=== PATIENT | female | born 1965 | race Hispanic/Latino ===

== ENCOUNTER 2019-10-08 22:00 | Inpatient (IN) | payer MEDICAID ==
[2019-10-08] MEDS ORDERED: SODIUM CHLORIDE 0.9% 1000 ML 1,000 ML IV ONE ×2 (22:22→23:19)
[2019-10-08] MEDS ORDERED: METOCLOPRAMIDE 10 MG/2 ML INJ IV ONE (22:46)
--- NOTE | 2019-10-08 22:48 | Emergency Department Report ---
ED General Adult HPI - General Chief complaint: Altered Mental Status Stated complaint: AMS Time Seen by Provider: 10/08/19 22:15 Source: EMS Mode of arrival: Stretcher Limitations: No Limitations - History of Present Illness Initial comments: She has a 53-year-old female past medical history of stroke who presents with nausea and vomiting answering going on for last couple hours. Patient's pain is moderate she says is old body. Patient has been having repeated bouts of nausea and vomiting. History is limited due to patient's condition. - Related Data Allergies Allergy/AdvReac Type Severity Reaction Status Date / Time No Known Allergies Allergy Unverified 10/08/19 23:04 ED Review of Systems ROS: Stated complaint: AMS Other details as noted in HPI ED Physical Exam - General Limitations: No Limitations General appearance: alert, in no apparent distress - Head Head exam: Present: atraumatic, normocephalic - Eye Eye exam: Present: normal appearance - ENT ENT exam: Present: mucous membranes moist - Neck Neck exam: Present: normal inspection - Respiratory Respiratory exam: Present: normal lung sounds bilaterally. Absent: respiratory distress - Cardiovascular Cardiovascular Exam: Present: regular rate, normal rhythm. Absent: systolic murmur, diastolic murmur, rubs, gallop - GI/Abdominal GI/Abdominal exam: Present: soft, normal bowel sounds - Extremities Exam Extremities exam: Present: normal inspection - Back Exam Back exam: Present: normal inspection - Neurological Exam Neurological exam: Present: alert, other (left sided hemiplegia and confusion.) - Psychiatric Psychiatric exam: Present: normal affect, normal mood - Skin Skin exam: Present: warm, dry, intact, normal color. Absent: rash ED Course Vital Signs 10/08/19 10/08/19 10/08/19 22:18 22:30 23:00 Pulse Rate 86 94 H 92 H Respiratory 15 11 L 17 Rate Blood Pressure 131/85 91/49 O2 Sat by Pulse 97 94 92 Oximetry 10/09/19 10/09/19 10/09/19 00:00 00:30 01:00 Pulse Rate 86 85 84 Respiratory 18 15 11 L Rate Blood Pressure 142/78 97/50 120/65 O2 Sat by Pulse 98 96 97 Oximetry 10/09/19 01:12 Pulse Rate Respiratory 18 Rate Blood Pressure O2 Sat by Pulse Oximetry ED Medical Decision Making - Lab Data Result diagrams: 10/08/19 22:50 10/08/19 22:50 Lab Results 10/08/19 10/08/19 10/08/19 Range/Units 22:50 22:50 22:50 WBC 13.6 H (4.5-11.0) K/mm3 RBC 7.12 H (3.65-5.03) M/mm3 Hgb 20.7 H* (10.1-14.3) gm/dl Hct 63.4 H* (30.3-42.9) % MCV 89 (79-97) fl MCH 29 (28-32) pg MCHC 33 (30-34) % RDW 14.4 (13.2-15.2) % Plt Count 372 (140-440) K/mm3 Lymph % (Auto) 19.5 (13.4-35.0) % [place] % (Auto) 4.9 (0.0-7.3) % Eos % (Auto) 0.1 (0.0-4.3) % Baso % (Auto) 0.5 (0.0-1.8) % Lymph # 2.7 (1.2-5.4) K/mm3 [place] # 0.7 (0.0-0.8) K/mm3 Eos # 0.0 (0.0-0.4) K/mm3 Baso # 0.1 (0.0-0.1) K/mm3 Seg Neutrophils % 75.0 H (40.0-70.0) % Seg Neutrophils # 10.2 H (1.8-7.7) K/mm3 Sodium 136 L (137-145) mmol/L Potassium 5.7 H (3.6-5.0) mmol/L Chloride 99.1 (98-107) mmol/L Carbon Dioxide 15 L (22-30) mmol/L Anion Gap 28 mmol/L BUN 38 H (7-17) mg/dL Creatinine 1.5 H (0.7-1.2) mg/dL Estimated GFR 36 ml/min BUN/Creatinine Ratio 25 % Glucose 243 H (65-100) mg/dL Calcium 10.2 (8.4-10.2) mg/dL Total Bilirubin 0.60 (0.1-1.2) mg/dL AST 13 (5-40) units/L ALT 14 (7-56) units/L Alkaline Phosphatase 77 (35-129) units/L Troponin T (0.00-0.029) ng/mL Total Protein 7.4 (6.3-8.2) g/dL Albumin 3.8 L (3.9-5) g/dL Albumin/Globulin Ratio 1.1 % Lipase 24 (13-60) units/L Urine Color (Yellow) Urine Turbidity (Clear) Urine pH (5.0-7.0) Ur Specific [place] (1.003-1.030) Urine Protein (Negative) mg/dL Urine Glucose (UA) (Negative) mg/dL Urine Ketones (Negative) mg/dL Urine Blood (Negative) Urine Nitrite (Negative) Urine Bilirubin (Negative) Urine Urobilinogen (<2.0) mg/dL Ur Leukocyte Esterase (Negative) Urine WBC (Auto) (0.0-6.0) /HPF Urine RBC (Auto) (0.0-6.0) /HPF Urine Bacteria (Auto) (Negative) /HPF Hyaline Casts /LPF Urine Mucus /HPF Urine Yeast (Budding) /HPF Urine Sperm (KETTLE SKIMMER) /HPF 10/08/19 10/08/19 Range/Units 22:50 Unknown WBC (4.5-11.0) K/mm3 RBC (3.65-5.03) M/mm3 Hgb (10.1-14.3) gm/dl Hct (30.3-42.9) % MCV (79-97) fl MCH (28-32) pg MCHC (30-34) % RDW (13.2-15.2) % Plt Count (140-440) K/mm3 Lymph % (Auto) (13.4-35.0) % [place] % (Auto) (0.0-7.3) % Eos % (Auto) (0.0-4.3) % Baso % (Auto) (0.0-1.8) % Lymph # (1.2-5.4) K/mm3 [place] # (0.0-0.8) K/mm3 Eos # (0.0-0.4) K/mm3 Baso # (0.0-0.1) K/mm3 Seg Neutrophils % (40.0-70.0) % Seg Neutrophils # (1.8-7.7) K/mm3 Sodium (137-145) mmol/L Potassium (3.6-5.0) mmol/L Chloride (98-107) mmol/L Carbon Dioxide (22-30) mmol/L Anion Gap mmol/L BUN (7-17) mg/dL Creatinine (0.7-1.2) mg/dL Estimated GFR ml/min BUN/Creatinine Ratio % Glucose (65-100) mg/dL Calcium (8.4-10.2) mg/dL Total Bilirubin (0.1-1.2) mg/dL AST (5-40) units/L ALT (7-56) units/L Alkaline Phosphatase (35-129) units/L Troponin T 0.040 H (0.00-0.029) ng/mL Total Protein (6.3-8.2) g/dL Albumin (3.9-5) g/dL Albumin/Globulin Ratio % Lipase (13-60) units/L Urine Color [place] (Yellow) Urine Turbidity Slightly-cloudy (Clear) Urine pH 5.0 (5.0-7.0) Ur Specific [place] 1.018 (1.003-1.030) Urine Protein 30 mg/dl (Negative) mg/dL Urine Glucose (UA) Neg (Negative) mg/dL Urine Ketones Tr (Negative) mg/dL Urine Blood Neg (Negative) Urine Nitrite Neg (Negative) Urine Bilirubin Neg (Negative) Urine Urobilinogen 2.0 (<2.0) mg/dL Ur Leukocyte Esterase Sm (Negative) Urine WBC (Auto) 19.0 H (0.0-6.0) /HPF Urine RBC (Auto) 10.0 (0.0-6.0) /HPF Urine Bacteria (Auto) 4+ (Negative) /HPF Hyaline Casts 3 /LPF Urine Mucus Few /HPF Urine Yeast (Budding) 3+ /HPF Urine Sperm Few (KETTLE SKIMMER) /HPF - EKG Data -: EKG Interpreted by Oh - EKG Data 10/09/19 01:01 EKG time 2222 rate 91 patient has sinus rhythm with repoll cauterization no ST segment elevation or T-wave inversion. Normal axis - Radiology Data Radiology results: report reviewed, image reviewed Chest X-ray: Seasonal acute cardiopulmonary disease - Medical Decision Making Chief medical diagnosis: Altered mental status secondary polycythemia vera Differential medical diagnosis: Electrolyte abnormality, dehydration, non-STEMI CT SCAN head CT scan of abdomen IV fluids IV antiemetics EKG chest x-ray and blood work ED workup is remarkable for polycythemia vera patient has an old stroke however just due to patient's weakness and this being the first time the patient's been here I'll admit the patient to be worked up to the hospitalist service. Patient will also get the CT scans when patient gets admitted as we do not have CT available currently at this time. Critical care attestation.: If time is entered above; I have spent that time in minutes in the direct care of this critically ill patient, excluding procedure time. ED Disposition Clinical Impression: Polycythemia vera, Encephalopathy acute Nausea and vomiting Qualifiers: Vomiting type: unspecified Vomiting Intractability: non-intractable Qualified Code(s): R11.2 - Nausea with vomiting, unspecified Disposition: -09 OP ADMIT IP TO THIS HOSP Is pt being admited?: Yes Does the pt Need Aspirin: No Condition: Stable Referrals: PRIMARY CARE, [Primary Care Provider] - 3-5 Days
[2019-10-08 23:08] LABS: Basophils % (Auto) 0.5 % (0.0-1.8); Eosinophils % (Auto) 0.1 % (0.0-4.3); Lymphocytes % (Auto) 19.5 % (13.4-35.0); Mean Corpuscular HGB Conc 33 % (30-34); Mean Corpuscular Volume 89 fl (79-97); Monocytes % (Auto) 4.9 % (0.0-7.3); Platelet Count 372 K/mm3 (140-440); Red Blood Count 7.12 M/mm3 (3.65-5.03); Red Cell Distribution Width 14.4 % (13.2-15.2)
[2019-10-08 23:09] LABS: Basophils # (Auto) 0.1 K/mm3 (0.0-0.1); Lymphocytes # (Auto) 2.7 K/mm3 (1.2-5.4); Monocytes # (Auto) 0.7 K/mm3 (0.0-0.8)
[2019-10-08 23:11] LABS: Hematocrit 63.4 % (30.3-42.9); Hemoglobin 20.7 gm/dl (10.1-14.3)
[2019-10-08 23:27] LABS: Albumin 3.8 g/dL (3.9-5); Calcium 10.2 mg/dL (8.4-10.2)
[2019-10-08] MEDS ORDERED: ASPIRIN 81 MG TAB CHEW PO ONE (23:42)
--- NOTE | 2019-10-09 | XRay Report ---
CHEST 1 VIEW INDICATION: nausea and vomiting. COMPARISON: 09/26/2019 FINDINGS: SUPPORT DEVICES: None. HEART / MEDIASTINUM: No significant abnormality. LUNGS / PLEURA: No significant pulmonary or pleural abnormality. No pneumothorax. ADDITIONAL FINDINGS: IMPRESSION: 1. No acute findings. Signer Name: Juan Luis Yepez MD Signed: 10/08/2019 11:55 PM Workstation Name: [id number]
[2019-10-09 00:51] LABS: Bacteria,Urine 4+ /HPF (Negative); Bilirubin,Urine NEG (Negative); Blood,Urine NEG (Negative); Color,Urine Amber (Yellow); Hyaline Casts,Urine 3 /LPF; Mucus,Urine FEW /HPF; Sperm,Urine FEW /HPF (NP)
[2019-10-09] MEDS ORDERED: cefTRIAXone/NS 1 GM/50 ML 1 GM/50 ML BAG IV ONE (01:33)
[2019-10-09] MEDS ORDERED: MAGNESIUM HYDROXIDE (MOM) ORAL LIQD UDC PO PRN (01:46)
[2019-10-09] MEDS ORDERED: ONDANSETRON 4 MG/2 ML INJ IV PRN (01:46)
[2019-10-09 03:33] LABS: Chol/HDL Ratio 4.77 %
--- NOTE | 2019-10-09 05:27 | History and Physical Report ---
History of Present Illness Date of examination: 10/09/19 Date of admission: 10/09/19 03:25 Chief complaint: Nausea and vomiting History of present illness: 53-year-old female who presents to the emergency room today with nausea and vomiting. There is no associated abdominal pain and no diarrhea. No history of fever or chills no history of chest pain or shortness of breath. Patient appears slightly confused upon arrival in the emergency room and she could not give a very good history. She has known history of CVA in the past. Nausea and vomiting resolved upon arrival in the emergency room. Work-up in the emergency room showed some renal insufficiency, elevated troponin, hyperkalemia, elevated hemoglobin and hematocrit, however CT scan of head did not show acute findings. She had no EKG changes . Past History Past Medical History: stroke Past Surgical History: No surgical history Social history: no significant social history Family history: no significant family history Medications and Allergies Allergies Allergy/AdvReac Type Severity Reaction Status Date / Time No Known Allergies Allergy Unverified 10/08/19 23:04 Active Meds: Active Medications Acetaminophen (Tylenol) 650 mg PO Q4H PRN PRN Reason: Pain MILD(1-3)/Fever >100.5/BUCK Heparin Sodium (Porcine) (Heparin) 5,000 unit SUB-Q Q8HR BRIDGET Sodium Chloride (Nacl 0.9% 1000 Ml) 1,000 mls @ 125 mls/hr IV DIRECT BRIDGET Ceftriaxone Sodium (Rocephin/Ns 1 Gm/50 Ml) 1 gm in 50 mls @ 100 mls/hr IV Q24H R BRIDGET; Protocol Magnesium Hydroxide (Milk Of Magnesia) 30 ml PO Q4H PRN PRN Reason: Constipation Ondansetron HCl (Zofran) 4 mg IV Q8H PRN PRN Reason: Nausea And Vomiting Sodium Chloride (Sodium Chloride Flush Syringe 10 Ml) 10 ml IV BID BRIDGET Sodium Chloride (Sodium Chloride Flush Syringe 10 Ml) 10 ml IV PRN PRN PRN Reason: LINE FLUSH Review of Systems ROS unobtainable: due to mental status Exam - Constitutional Vitals: Temp Pulse Resp BP Pulse Ox 79 16 110/62 92 10/09/19 03:30 10/09/19 03:30 10/09/19 03:30 10/09/19 03:30 General appearance: Present: no acute distress, well-nourished - EENT Eyes: Present: PERRL, EOM intact ENT: hearing intact, clear oral mucosa, dentition normal - Neck Neck: Present: supple, normal ROM - Respiratory Respiratory effort: normal Respiratory: bilateral: CTA - Cardiovascular Rhythm: regular Heart Sounds: Present: S1 & S2 - Extremities Extremities: no ischemia, pulses symmetrical, No edema, Full ROM Peripheral Pulses: within normal limits - Abdominal General gastrointestinal: Present: soft, non-tender, non-distended - Integumentary Integumentary: Present: clear, warm, dry - Musculoskeletal Musculoskeletal: strength equal bilaterally - Psychiatric Psychiatric: appropriate mood/affect, intact judgment & insight, cooperative - Neurologic Neurologic: CNII-XII intact, moves all extremities Results - Labs CBC & Chem 7: 10/08/19 22:50 10/08/19 22:50 Labs: Abnormal lab results 10/08/19 10/08/19 10/08/19 Range/Units 22:50 22:50 22:50 WBC 13.6 H (4.5-11.0) K/mm3 RBC 7.12 H (3.65-5.03) M/mm3 Hgb 20.7 H* (10.1-14.3) gm/dl Hct 63.4 H* (30.3-42.9) % Seg Neutrophils % 75.0 H (40.0-70.0) % Seg Neutrophils # 10.2 H (1.8-7.7) K/mm3 Sodium 136 L (137-145) mmol/L Potassium 5.7 H (3.6-5.0) mmol/L Carbon Dioxide 15 L (22-30) mmol/L BUN 38 H (7-17) mg/dL Creatinine 1.5 H (0.7-1.2) mg/dL Glucose 243 H (65-100) mg/dL Troponin T 0.040 H (0.00-0.029) ng/mL Albumin 3.8 L (3.9-5) g/dL Triglycerides 229 H (2-149) mg/dL HDL Cholesterol 36 L (40-59) mg/dL Urine WBC (Auto) (0.0-6.0) /HPF 10/08/19 Range/Units Unknown WBC (4.5-11.0) K/mm3 RBC (3.65-5.03) M/mm3 Hgb (10.1-14.3) gm/dl Hct (30.3-42.9) % Seg Neutrophils % (40.0-70.0) % Seg Neutrophils # (1.8-7.7) K/mm3 Sodium (137-145) mmol/L Potassium (3.6-5.0) mmol/L Carbon Dioxide (22-30) mmol/L BUN (7-17) mg/dL Creatinine (0.7-1.2) mg/dL Glucose (65-100) mg/dL Troponin T (0.00-0.029) ng/mL Albumin (3.9-5) g/dL Triglycerides (2-149) mg/dL HDL Cholesterol (40-59) mg/dL Urine WBC (Auto) 19.0 H (0.0-6.0) /HPF Assessment and Plan - Patient Problems (1) Encephalopathy acute Current Visit: Yes Status: Acute Plan to address problem: Etiology is unclear. Will monitor patient on telemetry and monitor labs closely. Patient placed on IV fluid and also placed on empiric IV antibiotics for possible UTI (2) Hyperkalemia Current Visit: Yes Status: Acute Plan to address problem: No EKG changes. Will give a dose of Kayexalate Will monitor chemistry. (3) Nausea and vomiting Current Visit: Yes Status: Acute Qualifiers: Vomiting type: unspecified Vomiting Intractability: non-intractable Qualified Code(s): R11.2 - Nausea with vomiting, unspecified Plan to address problem: Patient placed on IV Zofran. She has also been placed on IV fluid normal saline. (4) Polycythemia vera Current Visit: Yes Status: Acute Plan to address problem: We will monitor CBC. No previous CBC for comparison. Please consult to hematology for further evaluation and recommendation (5) Elevated troponin Current Visit: Yes Status: Acute Plan to address problem: Patient denies chest pain and there are no EKG changes. Will trend troponin levels. We will also await recommendations from cardiology. (6) DVT prophylaxis Current Visit: Yes Status: Acute Plan to address problem: Patient placed on subcutaneous heparin (7) Full code status Current Visit: Yes Status: Acute
[2019-10-09] MEDS ORDERED: SODIUM POLYSTYRENE 15 GM/60 ML ORAL LIQD PO ONE ×2 (05:45→11:00)
[2019-10-09] MEDS: HEPARIN 5,000 UNIT/1 ML VIAL SUB-Q SCH ×3 (07:00→23:17)
--- NOTE | 2019-10-09 07:39 | Event Note ---
Date: 10/09/19 [id number]
--- NOTE | 2019-10-09 08:06 | Cat Scan Report ---
CT ABDOMEN AND PELVIS WITHOUT CONTRAST HISTORY: nausea COMPARISON: None. TECHNIQUE: Axial CT images were obtained through the abdomen and pelvis without IV contrast. Sagittal and coronal reformatted images. All CT scans at this location are performed using CT dose reduction for ALARA by means of automated exposure control. FINDINGS: CT ABDOMEN: Lung Bases: Clear. Liver: No significant abnormality. Biliary: There are 3 large partially calcified stones in the gallbladder fundus measuring up to 2.1 c m. A smaller stone in the gallbladder neck measures 5-6 mm. No biliary dilatation or suggestion of ac [place] cholecystitis. Spleen: No significant abnormality. Unenlarged. Pancreas: No significant abnormality. Adrenals: No significant abnormality. Kidneys: No significant abnormality. Lymphatics: No lymphadenopathy. Vasculature: No significant abnormality. Bowel/Peritoneum: No evidence for bowel obstruction or focal inflammation. There are a few scattered diverticula in the descending colon. Normal appendix. Free fluid or free air. CT PELVIS: : The uterus is enlarged and anteverted. Approximate 10 cm fundal fibroid is suspected. The adnexa are unremarkable. Bladder and distal ureters are within normal limits. Osseous Structures: Intact. Moderate thoracolumbar spondylosis. Additional Findings: None IMPRESSION: No acute inflammatory process is appreciated. Cholelithiasis as outlined above. No evidence for acute cholecystitis on noncontrast CT. Large fundal fibroid. Minimal diverticulosis. Signer Name: Sathish Dia Jr, MD Signed: 10/09/2019 8:02 AM Workstation Name: [id number]
--- NOTE | 2019-10-09 08:13 | Cat Scan Report ---
CT HEAD WITHOUT CONTRAST INDICATION : altered mental status. TECHNIQUE: Axial imaging performed from the skull apex through the skull base without the use of con trast. Sagittal and coronal reformatted images. All CT scans at this location are performed using C T dose reduction for ALARA by means of automated exposure control. COMPARISON: 09/29/2019 FINDINGS: Parenchyma: Chronic ischemic infarct in the left barney radiata and subacute to chronic ischemic inf arct in the left [employer] distribution is again noted and grossly unchanged since the previous exam. Mild chronic microangiopathy in the white matter is also stable. No acute territorial infarct, hemorrhage or extra-axial fluid collection is identified. Posterior fossa and contents are within normal limits. Ventricles: Ventricles are normal in size and appear symmetric. Bones: No acute osseous abnormality. Sinuses: Sinuses and mastoid air cells are clear. Soft tissues: Soft tissues including the orbits appear normal. IMPRESSION: No acute abnormality detected. Chronic ischemic infarcts in the left barney radiata and l eft posterior cerebral artery territory. Mild chronic microangiopathy in the white matter. Signer Name: Sathish Dia Jr, MD Signed: 10/09/2019 8:08 AM Workstation Name: [id number]
[2019-10-09] MEDS ORDERED: cefTRIAXone/NS 1 GM/50 ML 1 GM/50 ML BAG IV SCH (10:00)
--- NOTE | 2019-10-09 10:18 | Consultation ---
History of Present Illness Consult date: 10/09/19 Consult reason: elevated troponin History of present illness: 53 year old female admitted with AMS, nausea, vomiting. Patient denies chest pain or shortness of breath. Patient was told in the ED that she had an acute stroke. ECG showing SR with LVH. Patient denies tobacco or alcohol abuse. No previous cardiac history. Cards consulted because of an isolated increase in troponin level. Past History Past Medical History: stroke Past Surgical History: No surgical history Social history: no significant social history Family history: no significant family history Medications and Allergies Allergies Allergy/AdvReac Type Severity Reaction Status Date / Time No Known Allergies Allergy Unverified 10/08/19 23:04 Home Medications Medication Instructions Recorded Confirmed Last Taken Type AtorvaSTATin [Lipitor] 40 mg PO QHS 10/09/19 10/09/19 10/08/19 History Clopidogrel [Plavix] 75 mg PO QDAY 10/09/19 10/09/19 10/08/19 History Sertraline [Zoloft] 100 mg PO BID 10/09/19 10/09/19 10/08/19 History amLODIPine [Norvasc] 10 mg PO DAILY 10/09/19 10/09/19 10/08/19 History carvediloL [Coreg] 6.25 mg PO BID 10/09/19 10/09/19 10/08/19 History lisinopriL [Zestril] 20 mg PO QDAY 10/09/19 10/09/19 10/08/19 History Active Meds: Active Medications Acetaminophen (Tylenol) 650 mg PO Q4H PRN PRN Reason: Pain MILD(1-3)/Fever >100.5/BUCK Heparin Sodium (Porcine) (Heparin) 5,000 unit SUB-Q Q8HR BRIDGET Last Admin: 10/09/19 07:00 Dose: 5,000 unit Documented by: Sodium Chloride (Nacl 0.9% 1000 Ml) 1,000 mls @ 125 mls/hr IV DIRECT BRIDGET Ceftriaxone Sodium (Rocephin/Ns 1 Gm/50 Ml) 1 gm in 50 mls @ 100 mls/hr IV Q24HR BRIDGET; Protocol Magnesium Hydroxide (Milk Of Magnesia) 30 ml PO Q4H PRN PRN Reason: Constipation Ondansetron HCl (Zofran) 4 mg IV Q8H PRN PRN Reason: Nausea And Vomiting Sodium Chloride (Sodium Chloride Flush Syringe 10 Ml) 10 ml IV BID BRIDGET Sodium Chloride (Sodium Chloride Flush Syringe 10 Ml) 10 ml IV PRN PRN PRN Reason: LINE FLUSH Review of Systems All systems: negative Physical Examination Vital Signs Pulse Resp Pulse Ox 86 15 97 10/08/19 22:18 10/08/19 22:18 10/08/19 22:18 General appearance: no acute distress HEENT: Positive: PERRL Neck: Positive: neck supple Cardiac: Positive: Reg Rate and Rhythm Lungs: Positive: Normal Exam Abdomen: Positive: Soft Extremities: Absent: edema Results 10/08/19 22:50 10/08/19 22:50 Cardiac Enzymes 10/08/19 Range/Units 22:50 AST 13 (5-40) units/L Lipids 10/08/19 Range/Units 22:50 Triglycerides 229 H (2-149) mg/dL Cholesterol 172 (50-199) mg/dL HDL Cholesterol 36 L (40-59) mg/dL Cholesterol/HDL Ratio 4.77 % CBC 10/08/19 Range/Units 22:50 WBC 13.6 H (4.5-11.0) K/mm3 RBC 7.12 H (3.65-5.03) M/mm3 Hgb 20.7 H* (10.1-14.3) gm/dl Hct 63.4 H* (30.3-42.9) % Plt Count 372 (140-440) K/mm3 Lymph # 2.7 (1.2-5.4) K/mm3 [place] # 0.7 (0.0-0.8) K/mm3 Eos # 0.0 (0.0-0.4) K/mm3 Baso # 0.1 (0.0-0.1) K/mm3 Comprehensive Metabolic Panel 10/08/19 Range/Units 22:50 Sodium 136 L (137-145) mmol/L Potassium 5.7 H (3.6-5.0) mmol/L Chloride 99.1 (98-107) mmol/L Carbon Dioxide 15 L (22-30) mmol/L BUN 38 H (7-17) mg/dL Creatinine 1.5 H (0.7-1.2) mg/dL Glucose 243 H (65-100) mg/dL Calcium 10.2 (8.4-10.2) mg/dL AST 13 (5-40) units/L ALT 14 (7-56) units/L Alkaline Phosphatase 77 (35-129) units/L Total Protein 7.4 (6.3-8.2) g/dL Albumin 3.8 L (3.9-5) g/dL - EKG Interpretation EKG: sinus rhythm EKG interpretations - Telemetry EKG Rhythm: Sinus Rhythm Assessment and Plan Nausea and vomiting Altered mental status Non-specific troponin elevation Essential primary hypertension History of CVA Type II DM Polycythemia Renal failure Recommendations: Continue to trend troponin Place patient on telemetry Obtain echocardiogram
[2019-10-09] MEDS: SODIUM CHLORIDE 0.9% 1000 ML 1,000 ML IV SCH ×2 (13:17→23:19)
--- NOTE | 2019-10-09 14:56 | Event Note ---
Date: 10/09/19 Patient seen and evaluated We will transfuse 1 unit of packed red blood cells IV fluids Trend troponin Echocardiogram Labs in a.m.
[2019-10-09 15:29] LABS: Basophils # (Auto) 0.1 K/mm3 (0.0-0.1); Basophils % (Auto) 0.4 % (0.0-1.8); Eosinophils % (Auto) 0.2 % (0.0-4.3); Hematocrit 52.7 % (30.3-42.9); Hemoglobin 17.4 gm/dl (10.1-14.3); Lymphocytes # (Auto) 3.5 K/mm3 (1.2-5.4); Lymphocytes % (Auto) 23.9 % (13.4-35.0); Mean Corpuscular HGB Conc 33 % (30-34); Mean Corpuscular Volume 89 fl (79-97); Monocytes # (Auto) 1.3 K/mm3 (0.0-0.8); Monocytes % (Auto) 8.9 % (0.0-7.3); Platelet Count 343 K/mm3 (140-440); Red Blood Count 5.92 M/mm3 (3.65-5.03); Red Cell Distribution Width 14.3 % (13.2-15.2)
[2019-10-09] MEDS: cefTRIAXone/NS 1 GM/50 ML 1 GM/50 ML BAG IV SCH (16:54)
[2019-10-09] MEDS: ACETAMINOPHEN 325 MG TAB PO PRN ×2 (16:54→23:16)
[2019-10-09] MEDS ORDERED: SODIUM CHLORIDE 0.9% 1000 ML 1,000 ML IV SCH (17:00)
[2019-10-10 06:18] LABS: Basophils # (Auto) 0.1 K/mm3 (0.0-0.1); Basophils % (Auto) 0.4 % (0.0-1.8); Eosinophils # (Auto) 0.1 K/mm3 (0.0-0.4); Eosinophils % (Auto) 0.5 % (0.0-4.3); Hemoglobin 17.8 gm/dl (10.1-14.3); Lymphocytes # (Auto) 4.4 K/mm3 (1.2-5.4); Lymphocytes % (Auto) 30.3 % (13.4-35.0); Mean Corpuscular HGB Conc 34 % (30-34); Mean Corpuscular Volume 88 fl (79-97); Monocytes # (Auto) 2.1 K/mm3 (0.0-0.8); Monocytes % (Auto) 14.1 % (0.0-7.3); Platelet Count 292 K/mm3 (140-440); Red Blood Count 6.03 M/mm3 (3.65-5.03); Red Cell Distribution Width 13.9 % (13.2-15.2)
[2019-10-10 06:20] LABS: INR 1.05 (0.87-1.13)
[2019-10-10 06:21] LABS: BUN/Creatinine Ratio 37; Blood Urea Nitrogen 33 mg/dL (7-17); Calcium 9.6 mg/dL (8.4-10.2); Hemolysis Index 25; Partial Thromboplastin Time 28.1 Sec. (24.2-36.6)
[2019-10-10] MEDS: HEPARIN 5,000 UNIT/1 ML VIAL SUB-Q SCH ×3 (06:26→22:09)
--- NOTE | 2019-10-10 08:27 | Progress Note ---
Subjective Date of service: 10/10/19 Interval history: Assessment and Plan Nausea and vomiting Altered mental status Non-specific troponin elevation Essential primary hypertension History of CVA Type II DM Polycythemia Renal failure Recommendations: Echo completed normal EF, no segmental wall motion abnormalities to explain trop elevation watchful waiting for now No further cardiac w/u planned will see PRN Objective Vital Signs Temp Pulse Resp BP Pulse Ox 10/10/19 04:31 97.3 F L 72 16 153/91 97 10/09/19 22:31 97.3 F L 74 16 189/91 95 10/09/19 18:04 179/78 10/09/19 17:59 98.0 F 55 L 20 206/97 56 L 10/09/19 13:11 168/84 10/09/19 11:57 98.2 F 83 16 179/85 96 10/09/19 09:00 82 14 143/71 99 10/09/19 08:30 81 8 L 140/72 98 - Physical Examination General: Appears Well HEENT: Positive: PERRL Neck: Positive: neck supple Cardiac: Positive: Reg Rate and Rhythm, S1/S2 Lungs: Positive: Normal Exam Neuro: Positive: Grossly Intact Abdomen: Positive: Soft Extremities: Absent: edema - Labs and Meds Coagulation 10/10/19 Range/Units 05:25 PT 13.8 (12.2-14.9) Sec. INR 1.05 (0.87-1.13) APTT 28.1 (24.2-36.6) Sec. CBC 10/09/19 10/10/19 Range/Units 14:55 05:25 WBC 14.5 H 14.6 H (4.5-11.0) K/mm3 RBC 5.92 H 6.03 H (3.65-5.03) M/mm3 Hgb 17.4 H D 17.8 H (10.1-14.3) gm/dl Hct 52.7 H D 53.0 H (30.3-42.9) % Plt Count 343 292 (140-440) K/mm3 Lymph # 3.5 4.4 (1.2-5.4) K/mm3 [place] # 1.3 H 2.1 H (0.0-0.8) K/mm3 Eos # 0.0 0.1 (0.0-0.4) K/mm3 Baso # 0.1 0.1 (0.0-0.1) K/mm3 Comprehensive Metabolic Panel 10/09/19 10/10/19 Range/Units 12:00 05:25 Sodium 137 (137-145) mmol/L Potassium 6.1 H* 3.9 D (3.6-5.0) mmol/L Chloride 101.9 (98-107) mmol/L Carbon Dioxide 19 L (22-30) mmol/L BUN 33 H (7-17) mg/dL Creatinine 0.9 (0.7-1.2) mg/dL Glucose 229 H (65-100) mg/dL Calcium 9.6 (8.4-10.2) mg/dL
[2019-10-10] MEDS: cefTRIAXone/NS 1 GM/50 ML 1 GM/50 ML BAG IV SCH (13:39)
[2019-10-10] MEDS: ACETAMINOPHEN 325 MG TAB PO PRN ×2 (13:40→18:55)
--- NOTE | 2019-10-10 17:49 | Discharge Summary ---
Providers - Providers Date of Admission: 10/09/19 03:25 Date of discharge: 10/10/19 Attending physician: BO MORALES 10/09/19 01:46 Consult to Physician [CONS] Routine Comment: Consulting Provider: AMRIT ADAM Physician Instructions: Reason For Exam: elevated troponin 10/09/19 06:02 Consult to Physician [CONS] Routine Comment: Consulting Provider: NII OSEGUERA Physician Instructions: Reason For Exam: polycythemia 10/09/19 15:05 Consult to Dietitian/Nutrition [CONS] Routine Physician Instructions: Reason For Exam: Reason for Consult: Poor oral intake Primary care physician: DIVERSIFIED CROPS SUPERVISOR Hospitalization Condition: Stable Pertinent studies: Echo completed normal EF, no segmental wall motion abnormalities to explain trop elevation Hospital course: 53-year-old female who presents to the emergency room today with nausea and vomiting. There is no associated abdominal pain and no diarrhea. No history of fever or chills no history of chest pain or shortness of breath. Patient appears slightly confused upon arrival in the emergency room and she co uld not give a very good history. She has known history of CVA in the past. Nausea and vomiting resolved upon arrival in the emergency room. Work-up in the emergency room showed some renal insufficiency, elevated troponin, hyperkalemia, elevated hemoglobin and hematocrit, however CT scan of head did not show acute findings. She had no EKG changes . (1) Encephalopathy acute Current Visit: Yes Status: Acute Plan to address problem: Etiology is unclear. Will monitor patient on telemetry and monitor labs closely. Patient placed on IV fluid and also placed on empiric IV antibiotics for possible UTI (2) Polycythemia vera Current Visit: Yes Status: Acute Plan to address problem: hemoglobin came down from 20gm to 17 with Hydration F/u with Hematology for Phlebotomy and w/u for polycythemia D/w patient at length (2) Hyperkalemia Current Visit: Yes Status: Acute Plan to address problem: Resolved (3) Nausea and vomiting Current Visit: Yes Status: Acute Qualifiers: Vomiting type: unspecified Vomiting Intractability: non-intractable Qualified Code(s): R11.2 - Nausea with vomiting, unspecified Plan to address problem: Resolved (5) Elevated troponin Current Visit: Yes Status: Acute Plan to address problem: Echo completed normal EF, no segmental wall motion abnormalities to explain trop elevation watchful waiting for now No further cardiac w/u planned (6) DVT prophylaxis Current Visit: Yes Status: Acute Plan to address problem: Patient placed on subcutaneous heparin (7) Full code status Current Visit: Yes Status: Acute Disposition: DC-01 TO HOME OR SELFCARE Core Measure Documentation - Palliative Care Palliative Care/ Comfort Measures: Not Applicable - Core Measures Any of the following diagnoses?: none Exam - Constitutional Vitals: Temp Pulse Resp BP Pulse Ox 98.2 F 74 16 178/84 92 10/10/19 15:25 10/10/19 15:25 10/10/19 15:25 10/10/19 15:25 10/10/19 15:25 General appearance: Present: no acute distress, well-nourished - EENT Eyes: Present: PERRL ENT: hearing intact, clear oral mucosa - Neck Neck: Present: supple, normal ROM - Respiratory Respiratory effort: normal Respiratory: bilateral: CTA - Cardiovascular Heart rate: 78 Rhythm: regular Heart Sounds: Present: S1 & S2. Absent: rub, click - Extremities Extremities: pulses symmetrical, No edema Peripheral Pulses: within normal limits - Abdominal General gastrointestinal: Present: soft, non-tender, non-distended, normal bowel sounds Female genitourinary: Present: normal - Rectal Rectal Exam: deferred - Integumentary Integumentary: Present: clear, warm, dry - Musculoskeletal Musculoskeletal: gait normal, strength equal bilaterally - Psychiatric Psychiatric: appropriate mood/affect, intact judgment & insight - Neurologic Neurologic: CNII-XII intact, moves all extremities Plan Activity: no restrictions Diet: regular Follow up with: TED NUÑEZ MD [Primary Care Provider] - 3-5 Days NII OSEGUERA MD [Staff Physician] - 7 Days
[2019-10-10] MEDS ORDERED: hydrALAZINE 20 MG/1 ML INJ IV PRN (18:41)
--- NOTE | 2019-10-10 18:47 | Hem/Onc Progress Note ---
Assessment and Plan 1. High hemoglobin and hematocrit polycythemia. This could be primary or secondary. Repeat of the same will be done and I will look into JAK2 testing. I had discussed with the patient regarding phlebotomy in the hospital setting. Phlebotomy is not easy. [email or web address] does not do phlebotomy. Other agencies do phlebotomy, but they do the same as an outpatient only. 2. Leukocytosis, likely reactive. 3. Renal impairment. 4. Electrolyte imbalance. 5. Elevated troponin. 6. Admitted with nausea, vomiting. 7. History of stroke with right-sided weakness. PLAN: We will try to see if phlebotomy can be done. It is nothing, but blood donation. About one bag of phlebotomy is sufficient. I will be awaiting for JAK2 results. I will follow the patient during inpatient stay and then in the clinic setting. I had spoken to RN reg the phlebotomy - Patient Problems (1) Polycythemia vera Status: Acute Subjective Date of service: 10/10/19 Principal diagnosis: high HB Interval history: rt sided weakness Objective - Exam Narrative Exam: Pain - n/a General appearance - rt sided weakness Performance status dependent Eyes - no icterus ENT - no bleeding - on BIPAP LNs cervical not palpable Neck - no LN Respiratory Normal - on o2 Breath sounds - CTA anteriorly CVS S1 S2 + Extremities edema General GI Soft Rectal deferred female - deferred Skin warm Musculoskeletal - rt sided weakness Neurologically CVA - Constitutional Vitals: Last Vital Signs Temp 98.2 F 10/10/19 15:25 Pulse 74 10/10/19 18:38 Resp 16 10/10/19 15:25 BP 209/99 10/10/19 18:38 Pulse Ox 92 10/10/19 15:25 - Labs Lab Results: Laboratory Results - last 24 hr 10/10/19 10/10/19 10/10/19 05:25 05:25 05:25 WBC 14.6 H RBC 6.03 H Hgb 17.8 H Hct 53.0 H MCV 88 MCH 30 MCHC 34 RDW 13.9 Plt Count 292 Lymph % (Auto) 30.3 [place] % (Auto) 14.1 H Eos % (Auto) 0.5 Baso % (Auto) 0.4 Lymph # 4.4 [place] # 2.1 H Eos # 0.1 Baso # 0.1 Seg Neutrophils % 54.7 Seg Neutrophils # 8.0 H PT 13.8 INR 1.05 APTT 28.1 Sodium 137 Potassium 3.9 D Chloride 101.9 Carbon Dioxide 19 L Anion Gap 20 BUN 33 H Creatinine 0.9 Estimated GFR > 60 BUN/Creatinine Ratio 37 Glucose 229 H Calcium 9.6 Medications & Allergies - Medications Allergies/Adverse Reactions: Allergies No Known Allergies Allergy (Unverified 10/08/19 23:04) Home Medications: Home Medications Medication Instructions Recorded Confirmed Last Taken Type AtorvaSTATin [Lipitor] 40 mg PO QHS 10/09/19 10/09/19 10/08/19 History Clopidogrel [Plavix] 75 mg PO QDAY 10/09/19 10/09/19 10/08/19 History Sertraline [Zoloft] 100 mg PO BID 10/09/19 10/09/19 10/08/19 History ALPRAZolam [Xanax TAB] 1 mg PO Q8H PRN #12 tablet 10/11/19 Unknown Rx amLODIPine 10 mg PO DAILY #30 10/11/19 Unknown Rx carvediloL [Coreg] 12.5 mg PO BID #60 tablet 10/11/19 Unknown Rx hydrALAZINE [Apresoline TAB] 25 mg PO Q8HR #90 tablet 10/11/19 Unknown Rx Active Medications: Generic Name Dose Route Start Last Admin Trade Name Freq PRN Reason Stop Dose Admin Acetaminophen 650 mg 10/09/19 01:46 10/10/19 13:40 Tylenol PO 650 mg Q4H PRN Administration Pain MILD(1-3)/Fever >100.5/BUCK Heparin Sodium (Porcine) 5,000 unit 10/09/19 06:00 10/10/19 17:01 Heparin SUB-Q 5,000 unit Q8HR BRIDGET Administration Hydralazine HCl 20 mg 10/10/19 18:41 Apresoline IV Q6H PRN Hypertension Sodium Chloride 1,000 mls @ 125 mls/hr 10/09/19 02:00 10/09/19 23:19 Nacl 0.9% 1000 Ml IV 125 mls/hr DIRECT BRIDGET Administration Ceftriaxone Sodium 1 gm in 50 mls @ 100 mls/hr 10/09/19 10:00 10/10/19 13:39 Rocephin/Ns 1 Gm/50 Ml IV 100 mls/hr Q24HR BRIDGET Administration Protocol Sodium Chloride 1,000 mls @ 100 mls/hr 10/09/19 17:00 10/10/19 08:23 Nacl 0.9% 1000 Ml IV 100 mls/hr DIRECT BRIDGET Administration Magnesium Hydroxide 30 ml 10/09/19 01:46 Milk Of Magnesia PO Q4H PRN Constipation Ondansetron HCl 4 mg 10/09/19 01:46 Zofran IV Q8H PRN Nausea And Vomiting Sodium Chloride 10 ml 10/09/19 10:00 10/10/19 17:04 Sodium Chloride Flush Syringe 10 Ml IV 10 ml BID BRIDGET Administration Sodium Chloride 10 ml 10/09/19 01:46 Sodium Chloride Flush Syringe 10 Ml IV PRN PRN LINE FLUSH
[2019-10-10] MEDS: SODIUM CHLORIDE 0.9% 1000 ML 1,000 ML IV SCH (18:57)
[2019-10-10] MEDS: hydrALAZINE 20 MG/1 ML INJ IV PRN (19:01)
[2019-10-11] MEDS: ACETAMINOPHEN 325 MG TAB PO PRN (01:36)
--- NOTE | 2019-10-11 01:44 | Consultation ---
REFERRED BY: Dr. Cameron. REASON FOR CONSULTATION: Polycythemia. HISTORY OF PRESENT ILLNESS: I saw the patient, a 53-year-old female, in the medical floor. She came to the hospital because of nausea and vomiting. No abdominal pain, no diarrhea. The patient has history of right-sided weakness and CVA in the past. In the ER, the patient was found to have renal insufficiency, elevated troponin, hyperkalemia, elevated hemoglobin and hematocrit. CT did not show any acute finding. I have been asked to evaluate the patient for hemoglobin and hematocrit. Hydration is being done. She says she has not seen a crab backer in the past. She does not know if she has polycythemia. At this time, slightly slurred speech. No headache, no visual disturbances, no chest pain, no abdominal pain, no vomiting at this time. The patient was admitted with nausea, vomiting and right-sided weakness present. PAST MEDICAL HISTORY: Stroke. PAST SURGICAL HISTORY: None. SOCIAL HISTORY: Lives with family members. FAMILY HISTORY: Not available. ALLERGIES: None. MEDICATIONS: Reviewed, which includes ceftriaxone, heparin, magnesium, Zofran. PHYSICAL EXAMINATION: VITAL SIGNS: Temperature 98, pulse 55, respirations 20, BP 206/97. HEENT: No icterus. NECK: No neck lymph nodes. HEART: S1, S2. LUNGS: Clear to auscultation anteriorly. ABDOMEN: Soft. EXTREMITIES: Right-sided weakness. NEUROLOGIC: Alert, awake, answers simple questions. LABORATORY DATA: White cell 13, hemoglobin 20, MCV 89, hematocrit 63, platelet 372. Potassium 5.7, creatinine 1.5, calcium 10.2, bilirubin 0.6. RADIOLOGY: Abdomen CT was done. This shows liver nil significant, spleen nil abnormal, not enlarged. ASSESSMENT: 1. High hemoglobin and hematocrit polycythemia. This could be primary or secondary. Repeat of the same will be done and I will look into JAK2 testing. I discussed with the patient regarding phlebotomy in the hospital setting. Phlebotomy is not easy. [facility] does not do phlebotomy. Other agencies do phlebotomy, but they do the same as an outpatient only. 2. Leukocytosis, likely reactive. 3. Renal impairment. 4. Electrolyte imbalance. 5. Elevated troponin. 6. Admitted with nausea, vomiting. 7. History of stroke with right-sided weakness. PLAN: We will try to see if phlebotomy can be done. It is nothing, but blood donation. About one bag of phlebotomy is sufficient. I will be awaiting for JAK2 results. I will follow the patient during inpatient stay and then in the clinic setting. JOB# [id number] NM/NTS
[2019-10-11] MEDS: hydrALAZINE 20 MG/1 ML INJ IV PRN ×2 (06:39→13:19)
[2019-10-11] MEDS: HEPARIN 5,000 UNIT/1 ML VIAL SUB-Q SCH ×2 (06:40→15:10)
[2019-10-11] MEDS: SODIUM CHLORIDE 0.9% 1000 ML 1,000 ML IV SCH (08:34)
[2019-10-11] MEDS: cefTRIAXone/NS 1 GM/50 ML 1 GM/50 ML BAG IV SCH (09:37)
[2019-10-11] MEDS ORDERED: hydrALAZINE 20 MG/1 ML INJ IV ONE ×2 (15:33→16:39)
--- NOTE | 2019-10-11 15:42 | Progress Note ---
Assessment and Plan Assessment and plan: (1) Encephalopathy acute Current Visit: Yes Status: Acute Plan to address problem: Etiology is unclear. Will monitor patient on telemetry and monitor labs closely. Patient placed on IV fluid and also placed on empiric IV antibiotics for possible UTI (2) Polycythemia vera Current Visit: Yes Status: Acute Plan to address problem: hemoglobin came down from 20gm to 17 with Hydration F/u with Hematology for Phlebotomy and w/u for polycythemia D/w patient at length (2) Hyperkalemia Current Visit: Yes Status: Acute Plan to address problem: Resolved (3) Nausea and vomiting Current Visit: Yes Status: Acute Qualifiers: Vomiting type: unspecified Vomiting Intractability: non-intractable Qualified Code(s): R11.2 - Nausea with vomiting, unspecified Plan to address problem: Resolved (5) Elevated troponin Current Visit: Yes Status: Acute Plan to address problem: Echo completed normal EF, no segmental wall motion abnormalities to explain trop elevation watchful waiting for now No further cardiac w/u planned (6) DVT prophylaxis Current Visit: Yes Status: Acute Plan to address problem: Patient placed on subcutaneous heparin (7) Full code status Current Visit: Yes Status: Acute Discharged yesterday ,did not go due to social issues DC today Check discharge summary History Interval history: Patient was discharged yesterday however no family available, Unable to be discharged 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 aware Patient has history of CVA and confusion and encephalopathy Today patient is comfortable however Blood pressures markedly increased Peak systolic blood pressure 190s Received IV hydralazine Vital signs reviewed Hospitalist Physical - Constitutional Vitals: Temp Pulse Resp BP Pulse Ox 97.6 F 86 16 191/76 96 10/11/19 12:45 10/11/19 12:45 10/11/19 12:45 10/11/19 15:03 10/11/19 12:45 General appearance: Present: no acute distress, well-nourished, other (Confused, slow speech) - EENT Eyes: Present: PERRL, EOM intact - Neck Neck: Present: supple, normal ROM - Respiratory Respiratory effort: normal Respiratory: bilateral: diminished, negative: rales, rhonchi, wheezing - Cardiovascular Rhythm: regular Heart Sounds: Present: S1 & S2 - Extremities Extremities: no ischemia, No edema - Abdominal General gastrointestinal: soft, non-tender, non-distended, normal bowel sounds - Integumentary Integumentary: Present: clear, warm - Psychiatric Psychiatric: other (Confused at times, slow speech) - Neurologic Neurologic: other (Residual weakness from past stroke, slow speech) Results - Labs CBC & Chem 7: 10/10/19 05:25 10/10/19 05:25 Labs: Laboratory Last Values WBC 14.6 K/mm3 (4.5-11.0) H 10/10/19 05:25 RBC 6.03 M/mm3 (3.65-5.03) H 10/10/19 05:25 Hgb 17.8 gm/dl (10.1-14.3) H 10/10/19 05:25 Hct 53.0 % (30.3-42.9) H 10/10/19 05:25 MCV 88 fl (79-97) 10/10/19 05:25 MCH 30 pg (28-32) 10/10/19 05:25 MCHC 34 % (30-34) 10/10/19 05:25 RDW 13.9 % (13.2-15.2) 10/10/19 05:25 Plt Count 292 K/mm3 (140-440) 10/10/19 05:25 Lymph % (Auto) 30.3 % (13.4-35.0) 10/10/19 05:25 [place] % (Auto) 14.1 % (0.0-7.3) H 10/10/19 05:25 Eos % (Auto) 0.5 % (0.0-4.3) 10/10/19 05:25 Baso % (Auto) 0.4 % (0.0-1.8) 10/10/19 05:25 Lymph # 4.4 K/mm3 (1.2-5.4) 10/10/19 05:25 [place] # 2.1 K/mm3 (0.0-0.8) H 10/10/19 05:25 Eos # 0.1 K/mm3 (0.0-0.4) 10/10/19 05:25 Baso # 0.1 K/mm3 (0.0-0.1) 10/10/19 05:25 Seg Neutrophils % 54.7 % (40.0-70.0) 10/10/19 05:25 Seg Neutrophils # 8.0 K/mm3 (1.8-7.7) H 10/10/19 05:25 PT 13.8 Sec. (12.2-14.9) 10/10/19 05:25 INR 1.05 (0.87-1.13) 10/10/19 05:25 APTT 28.1 Sec. (24.2-36.6) 10/10/19 05:25 Sodium 137 mmol/L (137-145) 10/10/19 05:25 Potassium 3.9 mmol/L (3.6-5.0) D 10/10/19 05:25 Chloride 101.9 mmol/L (98-107) 10/10/19 05:25 Carbon Dioxide 19 mmol/L (22-30) L 10/10/19 05:25 Anion Gap 20 mmol/L 10/10/19 05:25 BUN 33 mg/dL (7-17) H 10/10/19 05:25 Creatinine 0.9 mg/dL (0.7-1.2) 10/10/19 05:25 Estimated GFR > 60 ml/min 10/10/19 05:25 BUN/Creatinine Ratio 37 % 10/10/19 05:25 Glucose 229 mg/dL (65-100) H 10/10/19 05:25 Calcium 9.6 mg/dL (8.4-10.2) 10/10/19 05:25 Total Bilirubin 0.60 mg/dL (0.1-1.2) 10/08/19 22:50 AST 13 units/L (5-40) 10/08/19 22:50 ALT 14 units/L (7-56) 10/08/19 22:50 Alkaline Phosphatase 77 units/L (35-129) 10/08/19 22:50 Troponin T 0.035 ng/mL (0.00-0.029) H 10/09/19 10:22 Total Protein 7.4 g/dL (6.3-8.2) 10/08/19 22:50 Albumin 3.8 g/dL (3.9-5) L 10/08/19 22:50 Albumin/Globulin Ratio 1.1 % 10/08/19 22:50 Triglycerides 229 mg/dL (2-149) H 10/08/19 22:50 Cholesterol 172 mg/dL (50-199) 10/08/19 22:50 LDL Cholesterol Direct 101 mg/dL (50-130) 10/08/19 22:50 HDL Cholesterol 36 mg/dL (40-59) L 10/08/19 22:50 Cholesterol/HDL Ratio 4.77 % 10/08/19 22:50 Lipase 24 units/L (13-60) 10/08/19 22:50 Urine Color [place] (Yellow) 10/08/19 Unknown Urine Turbidity Slightly-cloudy (Clear) 10/08/19 Unknown Urine pH 5.0 (5.0-7.0) 10/08/19 Unknown Ur Specific [place] 1.018 (1.003-1.030) 10/08/19 Unknown Urine Protein 30 mg/dl mg/dL (Negative) 10/08/19 Unknown Urine Glucose (UA) Neg mg/dL (Negative) 10/08/19 Unknown Urine Ketones Tr mg/dL (Negative) 10/08/19 Unknown Urine Blood Neg (Negative) 10/08/19 Unknown Urine Nitrite Neg (Negative) 10/08/19 Unknown Urine Bilirubin Neg (Negative) 10/08/19 Unknown Urine Urobilinogen 2.0 mg/dL (<2.0) 10/08/19 Unknown Ur Leukocyte Esterase Sm (Negative) 10/08/19 Unknown Urine WBC (Auto) 19.0 /HPF (0.0-6.0) H 10/08/19 Unknown Urine RBC (Auto) 10.0 /HPF (0.0-6.0) 10/08/19 Unknown Urine Bacteria (Auto) 4+ /HPF (Negative) 10/08/19 Unknown Hyaline Casts 3 /LPF 10/08/19 Unknown Urine Mucus Few /HPF 10/08/19 Unknown Urine Yeast (Budding) 3+ /HPF 10/08/19 Unknown Urine Sperm Few /HPF (SCREEN OPERATOR) 10/08/19 Unknown Active Medications - Current Medications Current Medications: Generic Name Dose Route Start Last Admin Trade Name Freq PRN Reason Stop Dose Admin Acetaminophen 650 mg 10/09/19 01:46 10/11/19 01:36 Tylenol PO 650 mg Q4H PRN Administration Pain MILD(1-3)/Fever >100.5/BUCK Heparin Sodium (Porcine) 5,000 unit 10/09/19 06:00 10/11/19 15:10 Heparin SUB-Q 5,000 unit Q8HR BRIDGET Administration Hydralazine HCl 10 mg 10/10/19 18:56 10/11/19 13:19 Apresoline IV 10 mg Q4HR PRN Administration Hypertension Sodium Chloride 1,000 mls @ 125 mls/hr 10/09/19 02:00 10/11/19 08:34 Nacl 0.9% 1000 Ml IV 125 mls/hr DIRECT BRIDGET Administration Ceftriaxone Sodium 1 gm in 50 mls @ 100 mls/hr 10/09/19 10:00 10/11/19 09:37 Rocephin/Ns 1 Gm/50 Ml IV 100 mls/hr Q24HR BRIDGET Administration Protocol Sodium Chloride 1,000 mls @ 100 mls/hr 10/09/19 17:00 10/10/19 08:23 Nacl 0.9% 1000 Ml IV 100 mls/hr DIRECT BRIDGET Administration Magnesium Hydroxide 30 ml 10/09/19 01:46 Milk Of Magnesia PO Q4H PRN Constipation Ondansetron HCl 4 mg 10/09/19 01:46 Zofran IV Q8H PRN Nausea And Vomiting Sodium Chloride 10 ml 10/09/19 10:00 10/11/19 09:37 Sodium Chloride Flush Syringe 10 Ml IV 10 ml BID BRIDGET Administration Sodium Chloride 10 ml 10/09/19 01:46 Sodium Chloride Flush Syringe 10 Ml IV PRN PRN LINE FLUSH Nutrition/Malnutrition Assess - Dietary Evaluation Nutrition/Malnutrition Findings: Nutrition Notes Start: 10/10/19 11:06 Freq: Status: Active Protocol: Document 10/10/19 11:06 LP (Rec: 10/10/19 11:15 LP [id number]) Nutrition Notes Need for Assessment generated from: MD Order Initial or Follow up Assessment Current Diagnosis Acute Kidney Injury,Diabetes, Stroke Other Pertinent Diagnosis AMS, N/V Current Diet Cardiac with Glucerna Labs/Tests NS at 100ml/hr Pertinent Medications BUN 33 BG 229 TG 229 Height 5 ft Weight 87.4 kg Usual Body Weight 95.45 kg [place] Body Weight (kg) 45.45 BMI 37.6 Weight change and time frame 8.5% wt loss in unknown timeframe Weight Status Morbidly Obese Subjective/Other Information Consult for poor oral intakes. Pt states eating well. Observed 50% consumed and 30% of supplement. Pt states wt loss but unsure of the amount of time. Burn Absent Trauma Absent GI Symptoms Nausea,Vomiting Food Allergy No Current % PO Fair (50-74%) Minimum of two criteria No Interpretation of Weight Loss (non- 5% in 1 month severe) #1 Nutrition Diagnosis Inadequate oral intake Etiology N/V As Evidenced by Signs and Symptoms Pt consuming 50% of breakfast and 30% of ONS Is patient on ventilator? No Is Patient Ambulatory and/or Out of Bed No REE-([facility]-confined to bed) [phone] Calculation Used for Recommendations [facility] Additional Notes Protein needs are 46-58g (0.8- 1g/kg using adjusted wt 57.8kg ) Fluid needs are 1ml/kcal Nutrition Intervention Change Diet Order: Continue Add Supplement/Snack (indicate name/kcal Glucerna [place] daily /protein ) Provides kCal: 220 Provides Protein (gm) 10 Goal #1 Meet at least 75% of kcal and protein needs Anticipated Discharge Needs: Cardiac diet and ONS as needed Follow-Up By: 10/12/19 Additional Comments Follow for intakes
[2019-10-11] MEDS ORDERED: ALPRAZolam 1 MG TAB PO PRN (17:52)
[2019-10-11] MEDS ORDERED: ALPRAZolam 1 MG TAB PO ONE (17:53)
[2019-10-11 19:11] VITALS: BP 170/76
[2019-10-11] MEDS ORDERED: hydrALAZINE 25 MG TAB PO SCH (22:00)
[2019-10-11] MEDS ORDERED: SERTRALINE 100 MG TAB PO SCH (22:00)
[2019-10-12] MEDS ORDERED: amLODIPine 10 MG TAB PO SCH (10:00)
[2019-10-12] MEDS ORDERED: CLOPIDOGREL 75 MG TAB PO SCH (10:00)
== END 2019-10-11 21:37 | disposition home health service (06) | DRG 70 ==
LOC: ED 22:00 → 3A 10-09 03:25
PROVIDERS: ADMIT Internal Medicine Geriatric Medicine; ATTEND Internal Medicine
DX: G93.40 Encephalopathy, unspecified (principal); N17.0 Acute kidney failure with tubular necrosis; I69.354 Hemiplegia and hemiparesis following cerebral infarction affecting left non-dominant side; E87.5 Hyperkalemia; D45 Polycythemia vera; E11.9 Type 2 diabetes mellitus without complications; Z79.84 Long term (current) use of oral hypoglycemic drugs
CPT/HCPCS: 36415; 70450; 71045; 74176; 80048; 80053; 80061; 81001; 83690; 84132; 84484; 85025; 85610; 85730; 87086; 93005; 93010; 93306; G0378; J0360; J0696; J1644; J2765; J7030

== ENCOUNTER 2021-02-09 09:46 | Inpatient (IN) | payer MEDICAID ==
[2021-02-09 10:59] LABS: Basophils % (Auto) 0.1 % (0.0-1.8); Eosinophils % (Auto) 0.1 % (0.0-4.3); Hemoglobin 13.4 gm/dl (10.1-14.3); Lymphocytes # (Auto) 1.1 K/mm3 (1.2-5.4); Lymphocytes % (Auto) 8.3 % (13.4-35.0); Mean Corpuscular HGB Conc 34 % (30-34); Mean Corpuscular Volume 89 fl (79-97); Monocytes # (Auto) 1.1 K/mm3 (0.0-0.8); Monocytes % (Auto) 8.2 % (0.0-7.3); Platelet Count 507 K/mm3 (140-440); Red Cell Distribution Width 14.2 % (13.2-15.2)
[2021-02-09 11:21] LABS: Calcium 9.3 mg/dL (8.4-10.2)
--- NOTE | 2021-02-09 11:24 | Emergency Department Report ---
ED General Adult HPI - General Chief complaint: Pain General Stated complaint: INFECTION BOTH LOWER EXTREMITIES Time Seen by Provider: 02/09/21 10:17 Source: patient, EMS Mode of arrival: Stretcher Limitations: No Limitations - History of Present Illness Initial comments: 55-year-old female, history of diabetes, hypertension, CVA, autism, presents to ED for evaluation of bilateral lower extremities. Patient arrives to the ED via EMS. Patient lives with her brother who is her roller man. Patient has wounds to bilateral lower extremities. Patient is a poor historian, unable to obtain a history from her. Per records, patient was admitted approximately 1 month ago for same, diagnosis of cellulitis to the lower extremities. Patient was discharged with prescription for Keflex. Wounds appear to have worsened compared to photographs taken during admission last month. -: unknown Location: left, right, upper extremity Severity scale (0 -10): 9 - Related Data Home Medications Medication Instructions Recorded Confirmed Last Taken AtorvaSTATin [Lipitor] 40 mg PO QHS 10/09/19 10/09/19 10/08/19 Clopidogrel [Plavix] 75 mg PO QDAY 10/09/19 10/09/19 10/08/19 Sertraline [Zoloft] 100 mg PO BID 10/09/19 10/09/19 10/08/19 Previous Rx's Medication Instructions Recorded Last Taken Type ALPRAZolam [Xanax TAB] 1 mg PO Q8H PRN #12 tablet 10/11/19 Unknown Rx amLODIPine 10 mg PO DAILY #30 10/11/19 Unknown Rx carvediloL [Coreg] 12.5 mg PO BID #60 tablet 10/11/19 Unknown Rx hydrALAZINE [Apresoline TAB] 25 mg PO Q8HR #90 tablet 10/11/19 Unknown Rx Itraconazole (Nf) [Sporanox (Nf)] 200 mg PO BID #28 capsule 01/08/21 Unknown Rx cephALEXin [Keflex] 500 mg PO Q6HR #28 capsule 01/08/21 Unknown Rx Allergies Allergy/AdvReac Type Severity Reaction Status Date / Time No Known Allergies Allergy Unverified 10/08/19 23:04 ED Review of Systems ROS: Stated complaint: INFECTION BOTH LOWER EXTREMITIES Other details as noted in HPI Comment: Unobtainable due to pts medical conditions ED Past Medical Hx - Past Medical History Hx Hypertension: Yes Hx CVA: Yes Hx Diabetes: Yes Hx Asthma: No Hx COPD: No Hx HIV: No Additional medical history: Autism - Social History Smoking Status: Never Smoker - Medications Home Medications: Home Medications Medication Instructions Recorded Confirmed Last Taken Type AtorvaSTATin [Lipitor] 40 mg PO QHS 10/09/19 10/09/19 10/08/19 History Clopidogrel [Plavix] 75 mg PO QDAY 10/09/19 10/09/19 10/08/19 History Sertraline [Zoloft] 100 mg PO BID 10/09/19 10/09/19 10/08/19 History ALPRAZolam [Xanax TAB] 1 mg PO Q8H PRN #12 tablet 10/11/19 Unknown Rx amLODIPine 10 mg PO DAILY #30 10/11/19 Unknown Rx carvediloL [Coreg] 12.5 mg PO BID #60 tablet 10/11/19 Unknown Rx hydrALAZINE [Apresoline TAB] 25 mg PO Q8HR #90 tablet 10/11/19 Unknown Rx Itraconazole (Nf) [Sporanox (Nf)] 200 mg PO BID #28 capsule 01/08/21 Unknown Rx cephALEXin [Keflex] 500 mg PO Q6HR #28 capsule 01/08/21 Unknown Rx ED Physical Exam - General Limitations: No Limitations General appearance: alert, in no apparent distress - Head Head exam: Present: atraumatic, normocephalic - Eye Eye exam: Present: normal appearance - ENT ENT exam: Present: mucous membranes moist - Neck Neck exam: Present: normal inspection - Respiratory Respiratory exam: Present: normal lung sounds bilaterally. Absent: respiratory distress - Cardiovascular Cardiovascular Exam: Present: regular rate, normal rhythm - GI/Abdominal GI/Abdominal exam: Present: soft. Absent: distended, tenderness - Extremities Exam Extremities exam: Present: other (Erythema present to bilateral lower extremities; significant erythema to the posterior aspect of the right thigh with blistering present and maceration of the skin; left lower extremity shows area of necrotic tissue on the lateral lower leg with purulence present) - Neurological Exam Neurological exam: Present: alert - Psychiatric Psychiatric exam: Present: flat affect - Skin Skin exam: Present: warm ED Course Vital Signs 02/09/21 02/09/21 02/09/21 10:06 10:13 10:15 Temperature 97.5 F L Pulse Rate 75 Respiratory 16 Rate Blood Pressure 133/58 151/55 Blood Pressure 133/65 [Left] O2 Sat by Pulse 96 95 Oximetry 02/09/21 02/09/21 02/09/21 10:30 10:45 11:01 Temperature Pulse Rate Respiratory Rate Blood Pressure 151/77 151/77 133/58 Blood Pressure [Left] O2 Sat by Pulse 99 97 98 Oximetry 02/09/21 02/09/21 02/09/21 11:15 11:31 11:45 Temperature Pulse Rate Respiratory Rate Blood Pressure 133/58 133/58 108/57 Blood Pressure [Left] O2 Sat by Pulse 95 99 100 Oximetry 02/09/21 02/09/21 02/09/21 12:00 12:15 12:30 Temperature Pulse Rate Respiratory Rate Blood Pressure 91/49 98/56 114/53 Blood Pressure [Left] O2 Sat by Pulse 98 98 99 Oximetry 02/09/21 02/09/21 02/09/21 12:45 13:00 13:15 Temperature Pulse Rate Respiratory Rate Blood Pressure 116/59 123/54 117/70 Blood Pressure [Left] O2 Sat by Pulse 98 98 97 Oximetry 02/09/21 02/09/21 02/09/21 13:31 13:45 14:01 Temperature Pulse Rate Respiratory Rate Blood Pressure 132/59 144/61 134/65 Blood Pressure [Left] O2 Sat by Pulse 95 96 95 Oximetry 02/09/21 02/09/21 02/09/21 14:15 14:30 14:45 Temperature Pulse Rate Respiratory Rate Blood Pressure 144/66 145/61 142/63 Blood Pressure [Left] O2 Sat by Pulse 97 94 93 Oximetry 02/09/21 02/09/21 02/09/21 15:00 15:15 15:30 Temperature Pulse Rate Respiratory Rate Blood Pressure 139/66 136/64 154/67 Blood Pressure [Left] O2 Sat by Pulse 95 97 95 Oximetry 02/09/21 02/09/21 02/09/21 15:45 16:00 16:15 Temperature Pulse Rate Respiratory Rate Blood Pressure 130/54 137/60 136/64 Blood Pressure [Left] O2 Sat by Pulse 96 97 95 Oximetry 02/09/21 02/09/21 02/09/21 16:30 16:45 17:00 Temperature Pulse Rate Respiratory Rate Blood Pressure 148/81 136/68 125/68 Blood Pressure [Left] O2 Sat by Pulse 95 96 95 Oximetry 02/09/21 02/09/21 17:15 17:30 Temperature Pulse Rate Respiratory Rate Blood Pressure 147/68 140/61 Blood Pressure [Left] O2 Sat by Pulse 94 96 Oximetry ED Medical Decision Making - Lab Data Result diagrams: 02/09/21 10:33 02/09/21 10:33 - Medical Decision Making 55-year-old female, history of diabetes, hypertension, CVA, autism, presents to ED for evaluation of bilateral lower extremities. Patient has wounds to bilateral lower extremities. Per records, patient was admitted approximately 1 month ago for same, diagnosis of cellulitis to the lower extremities. Patient was discharged with prescription for Keflex. Wounds appear to have worsened compared to photographs taken during admission last month. Patient afebrile. Has WBC count of 13. Also shows evidence of some acute renal insufficiency. Patient appears to have failed outpatient management. IV antibiotics given. Patient will be admitted to hospitalist, Dr. Conley, for further management. - Differential Diagnosis Cellulitis, osteomyelitis, failure to thrive Critical care attestation.: If time is entered above; I have spent that time in minutes in the direct care of this critically ill patient, excluding procedure time. ED Disposition Clinical Impression: Cellulitis of both lower extremities, Acute renal failure Disposition: OP ADMIT IP TO THIS HOSP Is pt being admited?: Yes Condition: Stable
[2021-02-09] MEDS ORDERED: VANCOMYCIN 1,750 MG in SODIUM CHLORIDE 0.9% 500 ML 500 ML IV ONE (11:30)
[2021-02-09] MEDS ORDERED: SODIUM CHLORIDE 0.9% 1000 ML 1,000 ML IV ONE (11:30)
[2021-02-09] MEDS ORDERED: CEFEPIME/NS 1 GM/100 ML 1 GM/100 ML BAG IV ONE (11:30)
[2021-02-09] MEDS ORDERED: ONDANSETRON 4 MG/2 ML INJ IV PRN (12:38)
[2021-02-09] MEDS ORDERED: VANCOMYCIN/NS 1 GM/250 ML 1 GM/250 ML BAG IV ONE (12:47)
--- NOTE | 2021-02-09 12:49 | History and Physical Report ---
History of Present Illness Chief complaint: Her legs are swollen and red History of present illness: 55 YO Female with Obesity, Debililty, DM, HTN, CVA, Autism presents ED for evaluation. Patient is confused with diminished cognition and is unable to provide history detailed history and only provides limited history. Patient history taken from EMS staff, ED staff as well as patient family who are available via telephone. As per family the patient has experienced redness and swelling to bilateral lower extremities. EMS notified and upon arrival the patient was found to be in distress and subsequently transported to [facility] for further care and evaluation of the aforementioned symptoms. The patient was seen and evaluated in the emergency department. All lab and imaging studies reviewed. The patient was found to have bilateral lower extremity cellulitis, debility, hyponatremia, systemic inflammatory response syndrome, acute kidney injury. Patient initiated on IV antibiotic therapy and admitted to medical floor. No further history is obtainable. No reports of fever, chills, chest pain, palpitation, productive cough, skin rash, recent ill contacts, or known exposure to COVID-19. Advanced care planning conducted in ED. Past History Past Medical History: diabetes, hypertension, stroke, other (See HPI) Past Surgical History: No surgical history, Other (Reviewed) Social history: . denies: smoking, alcohol abuse, prescription drug abuse Family history: diabetes, hypertension Medications and Allergies Allergies Allergy/AdvReac Type Severity Reaction Status Date / Time No Known Allergies Allergy Unverified 10/08/19 23:04 Home Medications Medication Instructions Recorded Confirmed Last Taken Type AtorvaSTATin [Lipitor] 40 mg PO QHS 10/09/19 10/09/19 10/08/19 History Clopidogrel [Plavix] 75 mg PO QDAY 10/09/19 10/09/19 10/08/19 History Sertraline [Zoloft] 100 mg PO BID 10/09/19 10/09/19 10/08/19 History ALPRAZolam [Xanax TAB] 1 mg PO Q8H PRN #12 tablet 10/11/19 Unknown Rx amLODIPine 10 mg PO DAILY #30 10/11/19 Unknown Rx carvediloL [Coreg] 12.5 mg PO BID #60 tablet 10/11/19 Unknown Rx hydrALAZINE [Apresoline TAB] 25 mg PO Q8HR #90 tablet 10/11/19 Unknown Rx Itraconazole (Nf) [Sporanox (Nf)] 200 mg PO BID #28 capsule 01/08/21 Unknown Rx cephALEXin [Keflex] 500 mg PO Q6HR #28 capsule 01/08/21 Unknown Rx Active Meds: Active Medications Acetaminophen (Acetaminophen 325 Mg Tab) 650 mg PO Q4H PRN PRN Reason: Pain MILD(1-3)/Fever >100.5/BUCK Vancomycin HCl 1,750 mg/ (Sodium Chloride) 535 mls @ 267.5 mls/hr IV ONCE ONE; Protocol Stop: 02/09/21 13:29 Vancomycin HCl (Vancomycin/Ns 1 Gm/250 Ml) 1 gm in 250 mls @ 167.007 mls/hr IV ONCE ONE; Protocol Stop: 02/09/21 14:16 Ondansetron HCl (Ondansetron 4 Mg/2 Ml Inj) 4 mg IV Q8H PRN PRN Reason: Nausea And Vomiting Sodium Chloride (Sodium Chloride 0.9% 10 Ml Flush Syringe) 10 ml IV BID BRIDGET Sodium Chloride (Sodium Chloride 0.9% 10 Ml Flush Syringe) 10 ml IV PRN PRN PRN Reason: LINE FLUSH Review of Systems ROS unobtainable: due to mental status Exam - Constitutional Vitals: Temp Pulse Resp BP Pulse Ox 97.5 F L 75 16 114/53 99 02/09/21 10:13 02/09/21 10:13 02/09/21 10:13 02/09/21 12:30 02/09/21 12:30 General appearance: Present: mild distress, obese - EENT Eyes: Present: PERRL ENT: hearing intact, clear oral mucosa - Neck Neck: Present: supple, normal ROM - Respiratory Respiratory effort: normal Respiratory: bilateral: CTA - Cardiovascular Heart Sounds: Present: S1 & S2. Absent: rub, click - Extremities Extremities: pulses symmetrical, No edema Peripheral Pulses: within normal limits - Abdominal General gastrointestinal: Present: soft, non-tender, non-distended, normal bowel sounds Female genitourinary: Present: normal - Integumentary Integumentary: Present: clear, dry, erythema - Musculoskeletal Musculoskeletal: gait normal, strength equal bilaterally - Psychiatric Psychiatric: no appropriate mood/affect, no intact judgment & insight, no memory intact - Neurologic Neurologic: CNII-XII intact, no focal deficits, moves all extremities, no gait normal Results - Labs CBC & Chem 7: 02/09/21 10:33 02/09/21 10:33 Labs: Abnormal lab results 02/09/21 02/09/21 Range/Units 10:33 10:33 WBC 13.0 H (4.5-11.0) K/mm3 Plt Count 507 H (140-440) K/mm3 Lymph % (Auto) 8.3 L (13.4-35.0) % [place] % (Auto) 8.2 H (0.0-7.3) % Lymph # (Auto) 1.1 L (1.2-5.4) K/mm3 [place] # (Auto) 1.1 H (0.0-0.8) K/mm3 Seg Neutrophils % 83.3 H (40.0-70.0) % Seg Neutrophils # 10.8 H (1.8-7.7) K/mm3 Sodium 136 L (137-145) mmol/L Chloride 95.7 L (98-107) mmol/L BUN 32 H (7-17) mg/dL Creatinine 1.5 H (0.6-1.2) mg/dL Glucose 219 H (65-100) mg/dL Assessment and Plan - Patient Problems (1) Cellulitis of both lower extremities Current Visit: Yes Status: Acute Plan to address problem: CBC, CMP, IV antibiotic therapy, bilateral lower extremity Doppler, supportive care. Wound care. (2) Systemic inflammatory response syndrome Current Visit: Yes Status: Acute Plan to address problem: CBC, CMP, IV antibiotic therapy, chest x-ray, urinalysis, treat cellulitis. (3) GABRIEL (acute kidney injury) Current Visit: Yes Status: Acute Plan to address problem: IV fluid resuscitation therapy, monitor urine output every shift, BMP, repeat BMP in a.m. to monitor serum creatinine as well as GFR. (4) Hyponatremia Current Visit: Yes Status: Acute Plan to address problem: IV fluid resuscitation therapy, BMP, repeat BMP in a.m. (5) Obesity Current Visit: Yes Status: Acute (6) Debility Current Visit: Yes Status: Acute Plan to address problem: Physical therapy consulted, supportive care. (7) Diabetes Current Visit: No Status: Acute Plan to address problem: Consistent carbohydrate diet, insulin protocol, hypoglycemia protocol, Accu- Chek. (8) DVT prophylaxis Current Visit: Yes Status: Acute Plan to address problem: SCD to bilateral lower extremities while in bed, prophylactic anticoagulation (9) Advance care planning Current Visit: Yes Status: Acute Plan to address problem: Disease education conducted, care plan discussed, prognosis discussed, patient is full code, +30 minutes. Case management consulted for assistance with discharge planning/assisted living facility placement versus fpc facility placement.
[2021-02-09] MEDS ORDERED: VANCOMYCIN PHARMACY TO DOSE IV SCH (13:00)
[2021-02-09] MEDS: hydrALAZINE 25 MG TAB PO SCH ×2 (15:03→23:07)
[2021-02-09] MEDS: SERTRALINE 100 MG TAB PO SCH (23:07)
[2021-02-09] MEDS: HEPARIN 5,000 UNIT/1 ML VIAL SUB-Q SCH (23:07)
[2021-02-09] MEDS: carvediloL 12.5 MG TAB PO SCH (23:07)
[2021-02-10 05:31] LABS: Basophils % (Auto) 0.3 % (0.0-1.8); Eosinophils % (Auto) 0.1 % (0.0-4.3); Hematocrit 36.9 % (30.3-42.9); Hemoglobin 11.8 gm/dl (10.1-14.3); Lymphocytes # (Auto) 0.8 K/mm3 (1.2-5.4); Lymphocytes % (Auto) 6.4 % (13.4-35.0); Mean Corpuscular HGB Conc 32 % (30-34); Mean Corpuscular Volume 88 fl (79-97); Monocytes # (Auto) 0.7 K/mm3 (0.0-0.8); Monocytes % (Auto) 5.6 % (0.0-7.3); Platelet Count 489 K/mm3 (140-440); Red Cell Distribution Width 13.8 % (13.2-15.2)
[2021-02-10 05:53] LABS: Alanine Aminotransferase 10 units/L (7-56); Albumin 2.7 g/dL (3.9-5); BUN/Creatinine Ratio 27; Blood Urea Nitrogen 24 mg/dL (7-17); Calcium 8.9 mg/dL (8.4-10.2); Hemolysis Index 2
[2021-02-10] MEDS: hydrALAZINE 25 MG TAB PO SCH ×3 (07:04→21:35)
[2021-02-10] MEDS: SERTRALINE 100 MG TAB PO SCH ×2 (10:07→21:35)
[2021-02-10] MEDS: CLOPIDOGREL 75 MG TAB PO SCH (10:07)
[2021-02-10] MEDS: HEPARIN 5,000 UNIT/1 ML VIAL SUB-Q SCH ×2 (10:07→21:34)
[2021-02-10] MEDS: VANCOMYCIN 1,250 MG in SODIUM CHLORIDE 0.9% 250ML 250 ML IV SCH ×2 (10:08→21:51)
[2021-02-10] MEDS: carvediloL 12.5 MG TAB PO SCH ×2 (10:12→21:34)
[2021-02-10] MEDS: amLODIPine 10 MG TAB PO SCH (10:12)
--- NOTE | 2021-02-10 19:45 | Progress Note ---
Assessment and Plan - Patient Problems (1) Cellulitis of both lower extremities Current Visit: Yes Status: Acute Plan to address problem: CBC, CMP, IV antibiotic therapy, bilateral lower extremity Doppler, supportive care. Wound care. (2) Systemic inflammatory response syndrome Current Visit: Yes Status: Acute Plan to address problem: CBC, CMP, IV antibiotic therapy, chest x-ray, urinalysis, treat cellulitis. (3) GABRIEL (acute kidney injury) Current Visit: Yes Status: Acute Plan to address problem: IV fluid resuscitation therapy, monitor urine output every shift, BMP, repeat BMP in a.m. to monitor serum creatinine as well as GFR. (4) Hyponatremia Current Visit: Yes Status: Acute Plan to address problem: IV fluid resuscitation therapy, BMP, repeat BMP in a.m. (5) Obesity Current Visit: Yes Status: Acute Plan to address problem: Balanced diet, increased physical activity at discharge, (6) Debility Current Visit: Yes Status: Acute Plan to address problem: Physical therapy consulted, supportive care. (7) Diabetes Current Visit: No Status: Acute Plan to address problem: Consistent carbohydrate diet, insulin protocol, hypoglycemia protocol, Accu- Chek. (8) DVT prophylaxis Current Visit: Yes Status: Acute Plan to address problem: SCD to bilateral lower extremities while in bed, prophylactic anticoagulation (9) Advance care planning Current Visit: Yes Status: Acute Plan to address problem: Disease education conducted, care plan discussed, prognosis discussed, patient is full code, +30 minutes. Case management consulted for assistance with discharge planning/assisted living facility placement versus assisted facility placement. History Interval history: 55 YO Female with Obesity, Debililty, DM, HTN, CVA, Autism HD #2 with Bilateral Lower Extremity Cellulitis, GABRIEL, SIRS, Debility. Pt resting comfortably. Pt denies pain. No reported nursing events. Hospitalist Physical - Constitutional Vitals: Temp Pulse Resp BP Pulse Ox 98.7 F 79 19 116/49 100 02/10/21 18:31 02/10/21 18:31 02/10/21 18:31 02/10/21 18:31 02/10/21 18:31 General appearance: Present: mild distress, obese - EENT Eyes: Present: PERRL, EOM intact ENT: hearing intact - Neck Neck: Present: supple - Respiratory Respiratory: bilateral: CTA - Cardiovascular Rhythm: regular Heart Sounds: Present: S1 & S2 - Extremities Extremities: no ischemia Extremity abnormal: edema, ulceration, erythema Peripheral Pulses: within normal limits - Abdominal General gastrointestinal: soft, non-tender, non-distended - Integumentary Integumentary: Present: clear, dry - Psychiatric Psychiatric: cooperative - Neurologic Neurologic: CNII-XII intact Results - Labs CBC & Chem 7: 02/10/21 04:50 02/10/21 04:50 Labs: Laboratory Last Values WBC 12.6 K/mm3 (4.5-11.0) H 02/10/21 04:50 RBC 4.20 M/mm3 (3.65-5.03) 02/10/21 04:50 Hgb 11.8 gm/dl (10.1-14.3) 02/10/21 04:50 Hct 36.9 % (30.3-42.9) 02/10/21 04:50 MCV 88 fl (79-97) 02/10/21 04:50 MCH 28 pg (28-32) 02/10/21 04:50 MCHC 32 % (30-34) 02/10/21 04:50 RDW 13.8 % (13.2-15.2) 02/10/21 04:50 Plt Count 489 K/mm3 (140-440) H 02/10/21 04:50 Lymph % (Auto) 6.4 % (13.4-35.0) L 02/10/21 04:50 [place] % (Auto) 5.6 % (0.0-7.3) 02/10/21 04:50 Eos % (Auto) 0.1 % (0.0-4.3) 02/10/21 04:50 Baso % (Auto) 0.3 % (0.0-1.8) 02/10/21 04:50 Lymph # (Auto) 0.8 K/mm3 (1.2-5.4) L 02/10/21 04:50 [place] # (Auto) 0.7 K/mm3 (0.0-0.8) 02/10/21 04:50 Eos # (Auto) 0.0 K/mm3 (0.0-0.4) 02/10/21 04:50 Baso # (Auto) 0.0 K/mm3 (0.0-0.1) 02/10/21 04:50 Seg Neutrophils % 87.6 % (40.0-70.0) H 02/10/21 04:50 Seg Neutrophils # 11.0 K/mm3 (1.8-7.7) H 02/10/21 04:50 Sodium 140 mmol/L (137-145) 02/10/21 04:50 Potassium 3.6 mmol/L (3.6-5.0) 02/10/21 04:50 Chloride 102.7 mmol/L (98-107) 02/10/21 04:50 Carbon Dioxide 25 mmol/L (22-30) 02/10/21 04:50 Anion Gap 16 mmol/L 02/10/21 04:50 BUN 24 mg/dL (7-17) H 02/10/21 04:50 Creatinine 0.9 mg/dL (0.6-1.2) 02/10/21 04:50 Estimated GFR > 60 ml/min 02/10/21 04:50 BUN/Creatinine Ratio 27 % 02/10/21 04:50 Glucose 176 mg/dL (65-100) H 02/10/21 04:50 POC Glucose 163 mg/dL (70-105) H 02/10/21 12:12 Calcium 8.9 mg/dL (8.4-10.2) 02/10/21 04:50 Total Bilirubin 0.50 mg/dL (0.1-1.2) 02/10/21 04:50 AST 13 units/L (5-40) 02/10/21 04:50 ALT 10 units/L (7-56) 02/10/21 04:50 Alkaline Phosphatase 89 units/L (35-129) 02/10/21 04:50 Total Protein 5.9 g/dL (6.3-8.2) L 02/10/21 04:50 Albumin 2.7 g/dL (3.9-5) L 02/10/21 04:50 Albumin/Globulin Ratio 0.8 % 02/10/21 04:50 [place]/IV: Voiding Method External Female Catheter Active Medications - Current Medications Current Medications: Generic Name Dose Route Start Last Admin Trade Name Freq PRN Reason Stop Dose Admin Acetaminophen 650 mg 02/09/21 12:38 Acetaminophen 325 Mg Tab PO Q4H PRN Pain MILD(1-3)/Fever >100.5/BUKC Amlodipine Besylate 10 mg 02/10/21 10:00 02/10/21 10:12 Amlodipine 10 Mg Tab PO Not Given DAILY BRIDGET Atorvastatin Calcium 40 mg 02/09/21 22:00 02/09/21 23:07 Atorvastatin 40 Mg Tab PO 40 mg QHS BRIDGET Administration Carvedilol 12.5 mg 02/09/21 22:00 02/10/21 10:12 Carvedilol 12.5 Mg Tab PO 12.5 mg BID BRIDGET Administration Clopidogrel Bisulfate 75 mg 02/10/21 10:00 02/10/21 10:07 Clopidogrel 75 Mg Tab PO 75 mg QDAY BRIDGET Administration Heparin Sodium (Porcine) 5,000 unit 02/09/21 22:00 02/10/21 10:07 Heparin 5,000 Unit/1 Ml Vial SUB-Q 5,000 unit Q12HR BRIDGET Administration Hydralazine HCl 25 mg 02/09/21 14:00 02/10/21 14:08 Hydralazine 25 Mg Tab PO Not Given Q8HR BRIDGET Vancomycin HCl 1,250 mg/ 275 mls @ 166.667 mls/hr 02/10/21 10:00 02/10/21 10:08 Sodium Chloride IV 166.667 mls/hr Q12H BRIDGET Administration Ondansetron HCl 4 mg 02/09/21 12:38 Ondansetron 4 Mg/2 Ml Inj IV Q8H PRN Nausea And Vomiting Sertraline HCl 100 mg 02/09/21 22:00 02/10/21 10:07 Sertraline 100 Mg Tab PO 100 mg BID BRIDGET Administration Sodium Chloride 10 ml 02/09/21 22:00 02/10/21 10:08 Sodium Chloride 0.9% 10 Ml Flush Syringe IV 10 ml BID BRIDGET Administration Sodium Chloride 10 ml 02/09/21 12:38 Sodium Chloride 0.9% 10 Ml Flush Syringe IV PRN PRN LINE FLUSH Nutrition/Malnutrition Assess - Dietary Evaluation Nutrition/Malnutrition Findings: Nutrition Notes Start: 02/10/21 13:21 Freq: Status: Active Protocol: Document 02/10/21 13:21 EMMA (Rec: 02/10/21 13:33 [email or web address]) Nutrition Notes Need for Assessment generated from: 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 RN screen for MST and skin risk. Pt with multiple wounds over both LE and ulcer on L heel. Pt doesn' t answer many questions. She states she "hasn't really" been eating but not sure for how long. Unsure of UBW. RN contacted to get pt diet. 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 No Is Patient Ambulatory and/or Out of Bed No REE-([facility]-confined to bed) 3122.703 Calculation Used for Recommendations [facility] Additional Notes Protein: (0.8-1.2g/kg AdjBW: 71kg) 57-85g, until GABRIEL is resolved Fluid: 1 ml/kcal Nutrition Intervention Change Diet Order: Advance as able Add Supplement/Snack (indicate name/kcal Glucerna TID /protein ) [place] BID Provides kCal: 850 Provides Protein (gm) 35 Goal #1 Meet at least 75% of protein and energy needs via PO and ONS intakes Goal #2 Wound healing Anticipated Discharge Needs: Cardiac, consistent cho with [place] BID Follow-Up By: 02/14/21 Additional Comments FU for intakes and ONS tolerance
[2021-02-11] MEDS: hydrALAZINE 25 MG TAB PO SCH ×3 (05:23→23:32)
[2021-02-11 09:30] LABS: Basophils # (Auto) 0.1 K/mm3 (0.0-0.1); Basophils % (Auto) 0.6 % (0.0-1.8); Eosinophils % (Auto) 0.1 % (0.0-4.3); Hematocrit 36.8 % (30.3-42.9); Hemoglobin 12.3 gm/dl (10.1-14.3); Lymphocytes # (Auto) 1.5 K/mm3 (1.2-5.4); Mean Corpuscular HGB Conc 33 % (30-34); Mean Corpuscular Volume 89 fl (79-97); Monocytes # (Auto) 1.1 K/mm3 (0.0-0.8); Monocytes % (Auto) 8.6 % (0.0-7.3); Platelet Count 440 K/mm3 (140-440); Red Blood Count 4.15 M/mm3 (3.65-5.03); Red Cell Distribution Width 13.9 % (13.2-15.2)
[2021-02-11] MEDS: HEPARIN 5,000 UNIT/1 ML VIAL SUB-Q SCH ×2 (09:57→23:06)
[2021-02-11] MEDS: CLOPIDOGREL 75 MG TAB PO SCH (09:58)
[2021-02-11] MEDS: SERTRALINE 100 MG TAB PO SCH ×2 (09:58→23:05)
[2021-02-11] MEDS: amLODIPine 10 MG TAB PO SCH (10:00)
[2021-02-11] MEDS: VANCOMYCIN 1,250 MG in SODIUM CHLORIDE 0.9% 250ML 250 ML IV SCH ×2 (10:00→23:06)
[2021-02-11] MEDS: carvediloL 12.5 MG TAB PO SCH ×2 (10:01→23:32)
[2021-02-12] MEDS: ACETAMINOPHEN 325 MG TAB PO PRN ×2 (00:22→10:27)
[2021-02-12] MEDS: hydrALAZINE 25 MG TAB PO SCH ×3 (06:12→22:05)
[2021-02-12] MEDS: VANCOMYCIN 1,250 MG in SODIUM CHLORIDE 0.9% 250ML 250 ML IV SCH (10:14)
[2021-02-12] MEDS: amLODIPine 10 MG TAB PO SCH (10:27)
[2021-02-12] MEDS: CLOPIDOGREL 75 MG TAB PO SCH (10:28)
[2021-02-12] MEDS: carvediloL 12.5 MG TAB PO SCH ×2 (10:28→22:04)
[2021-02-12] MEDS: SERTRALINE 100 MG TAB PO SCH ×2 (10:28→22:04)
[2021-02-12] MEDS: HEPARIN 5,000 UNIT/1 ML VIAL SUB-Q SCH ×2 (10:28→22:03)
[2021-02-12] MEDS ORDERED: MORPHINE 2 MG/1 ML INJ IV STA (13:49)
[2021-02-12] MEDS ORDERED: VANCOMYCIN 1,250 MG in SODIUM CHLORIDE 0.9% 250ML 250 ML IV SCH (18:00)
--- NOTE | 2021-02-12 20:38 | Progress Note ---
Assessment and Plan - Patient Problems (1) Cellulitis of both lower extremities Current Visit: Yes Status: Acute Plan to address problem: CBC, CMP, IV antibiotic therapy, bilateral lower extremity Doppler, supportive care. Wound care. (2) Systemic inflammatory response syndrome Current Visit: Yes Status: Acute Plan to address problem: CBC, CMP, IV antibiotic therapy, chest x-ray, urinalysis, treat cellulitis. (3) GABRIEL (acute kidney injury) Current Visit: Yes Status: Acute Plan to address problem: IV fluid resuscitation therapy, monitor urine output every shift, BMP, repeat BMP in a.m. to monitor serum creatinine as well as GFR. (4) Hyponatremia Current Visit: Yes Status: Acute Plan to address problem: IV fluid resuscitation therapy, BMP, repeat BMP in a.m. (5) Obesity Current Visit: Yes Status: Acute Plan to address problem: Balanced diet, increased physical activity at discharge, (6) Debility Current Visit: Yes Status: Acute Plan to address problem: Physical therapy consulted, supportive care. (7) Diabetes Current Visit: No Status: Acute Plan to address problem: Consistent carbohydrate diet, insulin protocol, hypoglycemia protocol, Accu- Chek. (8) DVT prophylaxis Current Visit: Yes Status: Acute Plan to address problem: SCD to bilateral lower extremities while in bed, prophylactic anticoagulation (9) Advance care planning Current Visit: Yes Status: Acute Plan to address problem: Disease education conducted, care plan discussed, prognosis discussed, patient is full code, +30 minutes. Case management consulted for assistance with discharge planning/assisted living facility placement versus [facility] facility placement. History Interval history: 55 YO Female with Obesity, Debililty, DM, HTN, CVA, Autism HD #3 with Bilateral Lower Extremity Cellulitis, GABRIEL, SIRS, Debility. Pt resting comfortably. Pt denies pain. No reported nursing events. Hospitalist Physical - Constitutional Vitals: Temp Pulse Resp BP Pulse Ox 98.8 F 71 20 125/58 90 02/12/21 15:46 02/12/21 15:46 02/12/21 15:46 02/12/21 15:46 02/12/21 15:46 General appearance: Present: mild distress, obese - EENT Eyes: Present: PERRL, EOM intact - Neck Neck: Present: supple - Respiratory Respiratory effort: normal Respiratory: bilateral: CTA - Cardiovascular Rhythm: regular Heart Sounds: Present: S1 & S2 - Extremities Extremity abnormal: edema, erythema Peripheral Pulses: within normal limits - Abdominal General gastrointestinal: soft, non-tender, non-distended - Integumentary Integumentary: Present: clear, dry - Psychiatric Psychiatric: cooperative - Neurologic Neurologic: CNII-XII intact Results - Labs CBC & Chem 7: 02/11/21 08:25 02/10/21 04:50 Labs: Laboratory Last Values WBC 12.7 K/mm3 (4.5-11.0) H 02/11/21 08:25 RBC 4.15 M/mm3 (3.65-5.03) 02/11/21 08:25 Hgb 12.3 gm/dl (10.1-14.3) 02/11/21 08:25 Hct 36.8 % (30.3-42.9) 02/11/21 08:25 MCV 89 fl (79-97) 02/11/21 08:25 MCH 30 pg (28-32) 02/11/21 08:25 MCHC 33 % (30-34) 02/11/21 08:25 RDW 13.9 % (13.2-15.2) 02/11/21 08:25 Plt Count 440 K/mm3 (140-440) 02/11/21 08:25 Lymph % (Auto) 12.0 % (13.4-35.0) L 02/11/21 08:25 [place] % (Auto) 8.6 % (0.0-7.3) H 02/11/21 08:25 Eos % (Auto) 0.1 % (0.0-4.3) 02/11/21 08:25 Baso % (Auto) 0.6 % (0.0-1.8) 02/11/21 08:25 Lymph # (Auto) 1.5 K/mm3 (1.2-5.4) 02/11/21 08:25 [place] # (Auto) 1.1 K/mm3 (0.0-0.8) H 02/11/21 08:25 Eos # (Auto) 0.0 K/mm3 (0.0-0.4) 02/11/21 08:25 Baso # (Auto) 0.1 K/mm3 (0.0-0.1) 02/11/21 08:25 Seg Neutrophils % 78.7 % (40.0-70.0) H 02/11/21 08:25 Seg Neutrophils # 10.0 K/mm3 (1.8-7.7) H 02/11/21 08:25 Sodium 140 mmol/L (137-145) 02/10/21 04:50 Potassium 3.6 mmol/L (3.6-5.0) 02/10/21 04:50 Chloride 102.7 mmol/L (98-107) 02/10/21 04:50 Carbon Dioxide 25 mmol/L (22-30) 02/10/21 04:50 Anion Gap 16 mmol/L 02/10/21 04:50 BUN 24 mg/dL (7-17) H 02/10/21 04:50 Creatinine 0.9 mg/dL (0.6-1.2) 02/10/21 04:50 Estimated GFR > 60 ml/min 02/10/21 04:50 BUN/Creatinine Ratio 27 % 02/10/21 04:50 Glucose 176 mg/dL (65-100) H 02/10/21 04:50 POC Glucose 270 mg/dL (70-105) H 02/12/21 12:31 Calcium 8.9 mg/dL (8.4-10.2) 02/10/21 04:50 Total Bilirubin 0.50 mg/dL (0.1-1.2) 02/10/21 04:50 AST 13 units/L (5-40) 02/10/21 04:50 ALT 10 units/L (7-56) 02/10/21 04:50 Alkaline Phosphatase 89 units/L (35-129) 02/10/21 04:50 Total Protein 5.9 g/dL (6.3-8.2) L 02/10/21 04:50 Albumin 2.7 g/dL (3.9-5) L 02/10/21 04:50 Albumin/Globulin Ratio 0.8 % 02/10/21 04:50 Vancomycin Trough 25.9 ug/mL (5.0-20.0) H 02/12/21 09:02 [place]/IV: Voiding Method Incontinent Active Medications - Current Medications Current Medications: Generic Name Dose Route Start Last Admin Trade Name Freq PRN Reason Stop Dose Admin Acetaminophen 650 mg 02/09/21 12:38 02/12/21 10:27 Acetaminophen 325 Mg Tab PO 650 mg Q4H PRN Administration Pain MILD(1-3)/Fever >100.5/BUCK Amlodipine Besylate 10 mg 02/10/21 10:00 02/12/21 10:27 Amlodipine 10 Mg Tab PO 10 mg DAILY BRIDGET Administration Atorvastatin Calcium 40 mg 02/09/21 22:00 02/11/21 23:05 Atorvastatin 40 Mg Tab PO 40 mg QHS BRIDGET Administration Carvedilol 12.5 mg 02/09/21 22:00 02/12/21 10:28 Carvedilol 12.5 Mg Tab PO 12.5 mg BID BRIDGET Administration Clopidogrel Bisulfate 75 mg 02/10/21 10:00 02/12/21 10:28 Clopidogrel 75 Mg Tab PO 75 mg QDAY BRIDGET Administration Heparin Sodium (Porcine) 5,000 unit 02/09/21 22:00 02/12/21 10:28 Heparin 5,000 Unit/1 Ml Vial SUB-Q 5,000 unit Q12HR BRIDGET Administration Hydralazine HCl 25 mg 02/09/21 14:00 02/12/21 13:39 Hydralazine 25 Mg Tab PO Not Given Q8HR BRIDGET Vancomycin HCl 1,250 mg/ 275 mls @ 166.667 mls/hr 02/12/21 18:00 02/12/21 17:47 Sodium Chloride IV 166.667 mls/hr Q18H BRIDGET Administration Morphine Sulfate 1 mg 02/12/21 14:49 Morphine 2 Mg/1 Ml Inj IV Q8H PRN Pain, Moderate (4-6) Ondansetron HCl 4 mg 02/09/21 12:38 Ondansetron 4 Mg/2 Ml Inj IV Q8H PRN Nausea And Vomiting Sertraline HCl 100 mg 02/09/21 22:00 02/12/21 10:28 Sertraline 100 Mg Tab PO 100 mg BID BRIDGET Administration Sodium Chloride 10 ml 02/09/21 22:00 02/12/21 10:28 Sodium Chloride 0.9% 10 Ml Flush Syringe IV 10 ml BID BRIDGET Administration Sodium Chloride 10 ml 02/09/21 12:38 Sodium Chloride 0.9% 10 Ml Flush Syringe IV PRN PRN LINE FLUSH Nutrition/Malnutrition Assess - Dietary Evaluation Nutrition/Malnutrition Findings: Nutrition Notes Start: 02/10/21 13:21 Freq: Status: Active Protocol: Document 02/10/21 13:21 (Rec: 02/10/21 13:33 [email or web address]) Nutrition Notes Need for Assessment generated from: MD Order,resident care assistant Initial or Follow up Assessment Current Diagnosis Acute Kidney Injury,Diabetes, Hypertension Other Pertinent Diagnosis debility, AMS, SIRS, cellulitis of both LE Current Diet No diet Labs/Tests BUN 24 BG 176 Pertinent Medications Reviewed Height 5 ft 5 in Weight 84.6 kg [place] Body Weight (kg) 56.81 BMI 31.0 Intake Prior to Admission Poor Weight Status Obese Subjective/Other Information MD order for ONS. RN screen for MST and skin risk. Pt with multiple wounds over both LE and ulcer on L heel. Pt doesn' t answer many questions. She states she "hasn't really" been eating but not sure for how long. Unsure of UBW. RN contacted to get pt diet. 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 No Is Patient Ambulatory and/or Out of Bed No REE-([facility]-confined to bed) [phone] Calculation Used for Recommendations [facility] Additional Notes Protein: (0.8-1.2g/kg AdjBW: 71kg) 57-85g, until GABRIEL is resolved Fluid: 1 ml/kcal Nutrition Intervention Change Diet Order: Advance as able Add Supplement/Snack (indicate name/kcal Glucerna TID /protein ) [place] BID Provides kCal: 850 Provides Protein (gm) 35 Goal #1 Meet at least 75% of protein and energy needs via PO and ONS intakes Goal #2 Wound healing Anticipated Discharge Needs: Cardiac, consistent cho with [place] BID Follow-Up By: 02/14/21 Additional Comments FU for intakes and ONS tolerance
--- NOTE | 2021-02-12 20:40 | Progress Note ---
Assessment and Plan - Patient Problems (1) Cellulitis of both lower extremities Current Visit: Yes Status: Acute Plan to address problem: CBC, CMP, IV antibiotic therapy, bilateral lower extremity Doppler, supportive care. Wound care. (2) Systemic inflammatory response syndrome Current Visit: Yes Status: Acute Plan to address problem: CBC, CMP, IV antibiotic therapy, chest x-ray, urinalysis, treat cellulitis. (3) GABRIEL (acute kidney injury) Current Visit: Yes Status: Acute Plan to address problem: IV fluid resuscitation therapy, monitor urine output every shift, BMP, repeat BMP in a.m. to monitor serum creatinine as well as GFR. (4) Hyponatremia Current Visit: Yes Status: Acute Plan to address problem: IV fluid resuscitation therapy, BMP, repeat BMP in a.m. (5) Obesity Current Visit: Yes Status: Acute Plan to address problem: Balanced diet, increased physical activity at discharge, (6) Debility Current Visit: Yes Status: Acute Plan to address problem: Physical therapy consulted, supportive care. (7) Diabetes Current Visit: No Status: Acute Plan to address problem: Consistent carbohydrate diet, insulin protocol, hypoglycemia protocol, Accu- Chek. (8) DVT prophylaxis Current Visit: Yes Status: Acute Plan to address problem: SCD to bilateral lower extremities while in bed, prophylactic anticoagulation (9) Advance care planning Current Visit: Yes Status: Acute Plan to address problem: Disease education conducted, care plan discussed, prognosis discussed, patient is full code, +30 minutes. Case management consulted for assistance with discharge planning/assisted living facility placement versus snf facility placement. History Interval history: 55 YO Female with Obesity, Debililty, DM, HTN, CVA, Autism HD #4 with Bilateral Lower Extremity Cellulitis, GABRIEL, SIRS, Debility. Pt resting comfortably. Pt complains of generalized body pain. Hospitalist Physical - Constitutional Vitals: Temp Pulse Resp BP Pulse Ox 98.8 F 71 20 125/58 90 02/12/21 15:46 02/12/21 15:46 02/12/21 15:46 02/12/21 15:46 02/12/21 15:46 General appearance: Present: mild distress, obese - EENT Eyes: Present: PERRL, EOM intact ENT: hearing intact - Neck Neck: Present: supple - Respiratory Respiratory effort: normal Respiratory: bilateral: CTA - Cardiovascular Rhythm: regular Heart Sounds: Present: S1 & S2 - Extremities Extremities: no ischemia Peripheral Pulses: within normal limits - Abdominal General gastrointestinal: soft, non-tender, non-distended - Integumentary Integumentary: Present: clear, dry - Psychiatric Psychiatric: cooperative - Neurologic Neurologic: CNII-XII intact Results - Labs CBC & Chem 7: 02/11/21 08:25 02/10/21 04:50 Labs: Laboratory Last Values WBC 12.7 K/mm3 (4.5-11.0) H 02/11/21 08:25 RBC 4.15 M/mm3 (3.65-5.03) 02/11/21 08:25 Hgb 12.3 gm/dl (10.1-14.3) 02/11/21 08:25 Hct 36.8 % (30.3-42.9) 02/11/21 08:25 MCV 89 fl (79-97) 02/11/21 08:25 MCH 30 pg (28-32) 02/11/21 08:25 MCHC 33 % (30-34) 02/11/21 08:25 RDW 13.9 % (13.2-15.2) 02/11/21 08:25 Plt Count 440 K/mm3 (140-440) 02/11/21 08:25 Lymph % (Auto) 12.0 % (13.4-35.0) L 02/11/21 08:25 [place] % (Auto) 8.6 % (0.0-7.3) H 02/11/21 08:25 Eos % (Auto) 0.1 % (0.0-4.3) 02/11/21 08:25 Baso % (Auto) 0.6 % (0.0-1.8) 02/11/21 08:25 Lymph # (Auto) 1.5 K/mm3 (1.2-5.4) 02/11/21 08:25 [place] # (Auto) 1.1 K/mm3 (0.0-0.8) H 02/11/21 08:25 Eos # (Auto) 0.0 K/mm3 (0.0-0.4) 02/11/21 08:25 Baso # (Auto) 0.1 K/mm3 (0.0-0.1) 02/11/21 08:25 Seg Neutrophils % 78.7 % (40.0-70.0) H 02/11/21 08:25 Seg Neutrophils # 10.0 K/mm3 (1.8-7.7) H 02/11/21 08:25 Sodium 140 mmol/L (137-145) 02/10/21 04:50 Potassium 3.6 mmol/L (3.6-5.0) 02/10/21 04:50 Chloride 102.7 mmol/L (98-107) 02/10/21 04:50 Carbon Dioxide 25 mmol/L (22-30) 02/10/21 04:50 Anion Gap 16 mmol/L 02/10/21 04:50 BUN 24 mg/dL (7-17) H 02/10/21 04:50 Creatinine 0.9 mg/dL (0.6-1.2) 02/10/21 04:50 Estimated GFR > 60 ml/min 02/10/21 04:50 BUN/Creatinine Ratio 27 % 02/10/21 04:50 Glucose 176 mg/dL (65-100) H 02/10/21 04:50 POC Glucose 270 mg/dL (70-105) H 02/12/21 12:31 Calcium 8.9 mg/dL (8.4-10.2) 02/10/21 04:50 Total Bilirubin 0.50 mg/dL (0.1-1.2) 02/10/21 04:50 AST 13 units/L (5-40) 02/10/21 04:50 ALT 10 units/L (7-56) 02/10/21 04:50 Alkaline Phosphatase 89 units/L (35-129) 02/10/21 04:50 Total Protein 5.9 g/dL (6.3-8.2) L 02/10/21 04:50 Albumin 2.7 g/dL (3.9-5) L 02/10/21 04:50 Albumin/Globulin Ratio 0.8 % 02/10/21 04:50 Vancomycin Trough 25.9 ug/mL (5.0-20.0) H 02/12/21 09:02 Bill[place]/IV: Voiding Method Incontinent Active Medications - Current Medications Current Medications: Generic Name Dose Route Start Last Admin Trade Name Freq PRN Reason Stop Dose Admin Acetaminophen 650 mg 02/09/21 12:38 02/12/21 10:27 Acetaminophen 325 Mg Tab PO 650 mg Q4H PRN Administration Pain MILD(1-3)/Fever >100.5/BUCK Amlodipine Besylate 10 mg 02/10/21 10:00 02/12/21 10:27 Amlodipine 10 Mg Tab PO 10 mg DAILY BRIDGET Administration Atorvastatin Calcium 40 mg 02/09/21 22:00 02/11/21 23:05 Atorvastatin 40 Mg Tab PO 40 mg QHS BRIDGET Administration Carvedilol 12.5 mg 02/09/21 22:00 02/12/21 10:28 Carvedilol 12.5 Mg Tab PO 12.5 mg BID BRIDGET Administration Clopidogrel Bisulfate 75 mg 02/10/21 10:00 02/12/21 10:28 Clopidogrel 75 Mg Tab PO 75 mg QDAY BRIDGET Administration Heparin Sodium (Porcine) 5,000 unit 02/09/21 22:00 02/12/21 10:28 Heparin 5,000 Unit/1 Ml Vial SUB-Q 5,000 unit Q12HR BRIDGET Administration Hydralazine HCl 25 mg 02/09/21 14:00 02/12/21 13:39 Hydralazine 25 Mg Tab PO Not Given Q8HR BRIDGET Vancomycin HCl 1,250 mg/ 275 mls @ 166.667 mls/hr 02/12/21 18:00 02/12/21 17:47 Sodium Chloride IV 166.667 mls/hr Q18H BRIDGET Administration Morphine Sulfate 1 mg 02/12/21 14:49 Morphine 2 Mg/1 Ml Inj IV Q8H PRN Pain, Moderate (4-6) Ondansetron HCl 4 mg 02/09/21 12:38 Ondansetron 4 Mg/2 Ml Inj IV Q8H PRN Nausea And Vomiting Sertraline HCl 100 mg 02/09/21 22:00 02/12/21 10:28 Sertraline 100 Mg Tab PO 100 mg BID BRIDGET Administration Sodium Chloride 10 ml 02/09/21 22:00 02/12/21 10:28 Sodium Chloride 0.9% 10 Ml Flush Syringe IV 10 ml BID BRIDGET Administration Sodium Chloride 10 ml 02/09/21 12:38 Sodium Chloride 0.9% 10 Ml Flush Syringe IV PRN PRN LINE FLUSH Nutrition/Malnutrition Assess - Dietary Evaluation Nutrition/Malnutrition Findings: Nutrition Notes Start: 02/10/21 13:21 Freq: Status: Active Protocol: Document 02/10/21 13:21 (Rec: 02/10/21 13:33 [email or web address]) Nutrition Notes Need for Assessment generated from: 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 RN screen for MST and skin risk. Pt with multiple wounds over both LE and ulcer on L heel. Pt doesn' t answer many questions. She states she "hasn't really" been eating but not sure for how long. Unsure of UBW. RN contacted to get pt diet. 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 No Is Patient Ambulatory and/or Out of Bed No REE-([facility]-confined to bed) [phone] Calculation Used for Recommendations [facility] Additional Notes Protein: (0.8-1.2g/kg AdjBW: 71kg) 57-85g, until GABRIEL is resolved Fluid: 1 ml/kcal Nutrition Intervention Change Diet Order: Advance as able Add Supplement/Snack (indicate name/kcal Glucerna TID /protein ) [place] BID Provides kCal: 850 Provides Protein (gm) 35 Goal #1 Meet at least 75% of protein and energy needs via PO and ONS intakes Goal #2 Wound healing Anticipated Discharge Needs: Cardiac, consistent cho with [place] BID Follow-Up By: 02/14/21 Additional Comments FU for intakes and ONS tolerance
[2021-02-13] MEDS: MORPHINE 2 MG/1 ML INJ IV PRN (05:24)
[2021-02-13] MEDS: hydrALAZINE 25 MG TAB PO SCH ×3 (06:06→22:30)
[2021-02-13] MEDS: carvediloL 12.5 MG TAB PO SCH ×2 (09:34→22:30)
[2021-02-13] MEDS: CLOPIDOGREL 75 MG TAB PO SCH (09:34)
[2021-02-13] MEDS: amLODIPine 10 MG TAB PO SCH (09:34)
[2021-02-13] MEDS: SERTRALINE 100 MG TAB PO SCH ×2 (09:34→22:30)
[2021-02-13] MEDS: HEPARIN 5,000 UNIT/1 ML VIAL SUB-Q SCH ×2 (09:34→22:31)
[2021-02-13] MEDS: ACETAMINOPHEN 325 MG TAB PO PRN ×2 (10:21→22:34)
[2021-02-13] MEDS: VANCOMYCIN 1,500 MG in SODIUM CHLORIDE 0.9% 500 ML 500 ML IV SCH (17:15)
--- NOTE | 2021-02-13 19:20 | Progress Note ---
Assessment and Plan - Patient Problems (1) Cellulitis of both lower extremities Current Visit: Yes Status: Acute Plan to address problem: CBC, CMP, IV antibiotic therapy, bilateral lower extremity Doppler, supportive care. Wound care. (2) Systemic inflammatory response syndrome Current Visit: Yes Status: Acute Plan to address problem: CBC, CMP, IV antibiotic therapy, chest x-ray, urinalysis, treat cellulitis. (3) GABRIEL (acute kidney injury) Current Visit: Yes Status: Acute Plan to address problem: IV fluid resuscitation therapy, monitor urine output every shift, BMP, repeat BMP in a.m. to monitor serum creatinine as well as GFR. (4) Hyponatremia Current Visit: Yes Status: Acute Plan to address problem: IV fluid resuscitation therapy, BMP, repeat BMP in a.m. (5) Obesity Current Visit: Yes Status: Acute Plan to address problem: Balanced diet, increased physical activity at discharge, (6) Debility Current Visit: Yes Status: Acute Plan to address problem: Physical therapy consulted, supportive care. Patient is not a candidate for inpatient therapy. Case management consulted for discharge planning to assisted living facility versus longterm facility. (7) Diabetes Current Visit: No Status: Acute Plan to address problem: Consistent carbohydrate diet, insulin protocol, hypoglycemia protocol, Accu- Chek. (8) DVT prophylaxis Current Visit: Yes Status: Acute Plan to address problem: SCD to bilateral lower extremities while in bed, prophylactic anticoagulation (9) Advance care planning Current Visit: Yes Status: Acute Plan to address problem: Disease education conducted, care plan discussed, prognosis discussed, patient is full code, +30 minutes. Case management consulted for assistance with discharge planning/assisted living facility placement versus longterm facility placement. History Interval history: 55 YO Female with Obesity, Debililty, DM, HTN, CVA, Autism HD #5 with Bilateral Lower Extremity Cellulitis, GABRIEL, SIRS, Debility. Pt resting comfortably. Pt complains of generalized body pain out of proportion to exam and interview. Case management consulted for assistance with discharge planning to assisted living facility versus longterm facility as per patient and family request. Hospitalist Physical - Constitutional Vitals: Temp Pulse Resp BP Pulse Ox 99.2 F 84 20 110/68 93 02/13/21 17:38 02/13/21 17:38 02/13/21 17:38 02/13/21 17:38 02/13/21 12:00 General appearance: Present: mild distress, obese - EENT Eyes: Present: PERRL, EOM intact ENT: hearing intact - Neck Neck: Present: supple - Respiratory Respiratory: bilateral: CTA - Cardiovascular Rhythm: regular Heart Sounds: Present: S1 & S2 - Extremities Extremity abnormal: edema, ulceration, erythema Peripheral Pulses: within normal limits - Abdominal General gastrointestinal: soft, non-tender, non-distended - Integumentary Integumentary: Present: clear, dry - Psychiatric Psychiatric: cooperative - Neurologic Neurologic: CNII-XII intact Results - Labs CBC & Chem 7: 02/11/21 08:25 02/13/21 08:29 Labs: Laboratory Last Values WBC 12.7 K/mm3 (4.5-11.0) H 02/11/21 08:25 RBC 4.15 M/mm3 (3.65-5.03) 02/11/21 08:25 Hgb 12.3 gm/dl (10.1-14.3) 02/11/21 08:25 Hct 36.8 % (30.3-42.9) 02/11/21 08:25 MCV 89 fl (79-97) 02/11/21 08:25 MCH 30 pg (28-32) 02/11/21 08:25 MCHC 33 % (30-34) 02/11/21 08:25 RDW 13.9 % (13.2-15.2) 02/11/21 08:25 Plt Count 440 K/mm3 (140-440) 02/11/21 08:25 Lymph % (Auto) 12.0 % (13.4-35.0) L 02/11/21 08:25 [place] % (Auto) 8.6 % (0.0-7.3) H 02/11/21 08:25 Eos % (Auto) 0.1 % (0.0-4.3) 02/11/21 08:25 Baso % (Auto) 0.6 % (0.0-1.8) 02/11/21 08:25 Lymph # (Auto) 1.5 K/mm3 (1.2-5.4) 02/11/21 08:25 [place] # (Auto) 1.1 K/mm3 (0.0-0.8) H 02/11/21 08:25 Eos # (Auto) 0.0 K/mm3 (0.0-0.4) 02/11/21 08:25 Baso # (Auto) 0.1 K/mm3 (0.0-0.1) 02/11/21 08:25 Seg Neutrophils % 78.7 % (40.0-70.0) H 02/11/21 08:25 Seg Neutrophils # 10.0 K/mm3 (1.8-7.7) H 02/11/21 08:25 Sodium 140 mmol/L (137-145) 02/10/21 04:50 Potassium 3.6 mmol/L (3.6-5.0) 02/10/21 04:50 Chloride 102.7 mmol/L (98-107) 02/10/21 04:50 Carbon Dioxide 25 mmol/L (22-30) 02/10/21 04:50 Anion Gap 16 mmol/L 02/10/21 04:50 BUN 24 mg/dL (7-17) H 02/10/21 04:50 Creatinine 0.6 mg/dL (0.6-1.2) 02/13/21 08:29 Estimated GFR > 60 ml/min 02/13/21 08:29 BUN/Creatinine Ratio 27 % 02/10/21 04:50 Glucose 176 mg/dL (65-100) H 02/10/21 04:50 POC Glucose 190 mg/dL (70-105) H 02/12/21 22:02 Calcium 8.9 mg/dL (8.4-10.2) 02/10/21 04:50 Total Bilirubin 0.50 mg/dL (0.1-1.2) 02/10/21 04:50 AST 13 units/L (5-40) 02/10/21 04:50 ALT 10 units/L (7-56) 02/10/21 04:50 Alkaline Phosphatase 89 units/L (35-129) 02/10/21 04:50 Total Protein 5.9 g/dL (6.3-8.2) L 02/10/21 04:50 Albumin 2.7 g/dL (3.9-5) L 02/10/21 04:50 Albumin/Globulin Ratio 0.8 % 02/10/21 04:50 Vancomycin Trough 25.9 ug/mL (5.0-20.0) H 02/12/21 09:02 [place]/IV: Voiding Method Incontinent Active Medications - Current Medications Current Medications: Generic Name Dose Route Start Last Admin Trade Name Freq PRN Reason Stop Dose Admin Acetaminophen 650 mg 02/09/21 12:38 02/13/21 10:21 Acetaminophen 325 Mg Tab PO 650 mg Q4H PRN Administration Pain MILD(1-3)/Fever >100.5/BUCK Amlodipine Besylate 10 mg 02/10/21 10:00 02/13/21 09:34 Amlodipine 10 Mg Tab PO 10 mg DAILY BRIDGET Administration Atorvastatin Calcium 40 mg 02/09/21 22:00 02/12/21 22:03 Atorvastatin 40 Mg Tab PO 40 mg QHS BRIDGET Administration Carvedilol 12.5 mg 02/09/21 22:00 02/13/21 09:34 Carvedilol 12.5 Mg Tab PO 12.5 mg BID BRIDGET Administration Clopidogrel Bisulfate 75 mg 02/10/21 10:00 02/13/21 09:34 Clopidogrel 75 Mg Tab PO 75 mg QDAY BRIDGET Administration Heparin Sodium (Porcine) 5,000 unit 02/09/21 22:00 02/13/21 09:34 Heparin 5,000 Unit/1 Ml Vial SUB-Q 5,000 unit Q12HR BRIDGET Administration Hydralazine HCl 25 mg 02/09/21 14:00 02/13/21 14:29 Hydralazine 25 Mg Tab PO Not Given Q8HR BRIDGET Vancomycin HCl 1,500 mg/ 530 mls @ 333.333 mls/hr 02/13/21 18:00 02/13/21 17:15 Sodium Chloride IV 333.333 mls/hr Q24H BRIDGET Administration Morphine Sulfate 1 mg 02/12/21 14:49 02/13/21 05:24 Morphine 2 Mg/1 Ml Inj IV 1 mg Q8H PRN Administration Pain, Moderate (4-6) Ondansetron HCl 4 mg 02/09/21 12:38 Ondansetron 4 Mg/2 Ml Inj IV Q8H PRN Nausea And Vomiting Sertraline HCl 100 mg 02/09/21 22:00 02/13/21 09:34 Sertraline 100 Mg Tab PO 100 mg BID BRIDGET Administration Sodium Chloride 10 ml 02/09/21 22:00 02/13/21 09:34 Sodium Chloride 0.9% 10 Ml Flush Syringe IV 10 ml BID BRIDGET Administration Sodium Chloride 10 ml 02/09/21 12:38 Sodium Chloride 0.9% 10 Ml Flush Syringe IV PRN PRN LINE FLUSH Nutrition/Malnutrition Assess - Dietary Evaluation Nutrition/Malnutrition Findings: Nutrition Notes Start: 02/10/21 13:21 Freq: Status: Active Protocol: Document 02/10/21 13:21 (Rec: 02/10/21 13:33 [email or web address]) Nutrition Notes 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 RN screen for MST and skin risk. Pt with multiple wounds over both LE and ulcer on L heel. Pt doesn' t answer many questions. She states she "hasn't really" been eating but not sure for how long. Unsure of UBW. RN contacted to get pt diet. 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 No Is Patient Ambulatory and/or Out of Bed No REE-([facility]-confined to bed) 0032.700 Calculation Used for Recommendations [facility] Additional Notes Protein: (0.8-1.2g/kg AdjBW: 71kg) 57-85g, until GABRIEL is resolved Fluid: 1 ml/kcal Nutrition Intervention Change Diet Order: Advance as able Add Supplement/Snack (indicate name/kcal Glucerna TID /protein ) [place] BID Provides kCal: 850 Provides Protein (gm) 35 Goal #1 Meet at least 75% of protein and energy needs via PO and ONS intakes Goal #2 Wound healing Anticipated Discharge Needs: Cardiac, consistent cho with [place] BID Follow-Up By: 02/14/21 Additional Comments FU for intakes and ONS tolerance
[2021-02-14] MEDS: MORPHINE 2 MG/1 ML INJ IV PRN ×2 (04:53→13:04)
[2021-02-14] MEDS: hydrALAZINE 25 MG TAB PO SCH ×3 (06:01→21:38)
[2021-02-14] MEDS: ACETAMINOPHEN 325 MG TAB PO PRN (07:50)
[2021-02-14] MEDS: CLOPIDOGREL 75 MG TAB PO SCH (10:33)
[2021-02-14] MEDS: amLODIPine 10 MG TAB PO SCH (10:33)
[2021-02-14] MEDS: SERTRALINE 100 MG TAB PO SCH ×2 (10:33→21:36)
[2021-02-14] MEDS: HEPARIN 5,000 UNIT/1 ML VIAL SUB-Q SCH ×2 (10:33→21:36)
[2021-02-14] MEDS: carvediloL 12.5 MG TAB PO SCH ×2 (10:33→21:37)
[2021-02-14 10:47] LABS: BUN/Creatinine Ratio 26; Blood Urea Nitrogen 21 mg/dL (7-17); Calcium 8.5 mg/dL (8.4-10.2); Hemolysis Index 38
--- NOTE | 2021-02-14 11:05 | Progress Note ---
Assessment and Plan Assessment and plan: Cellulitis of both lower extremities Elevate the limb , wound care, antibiotics ID consult if needed Systemic inflammatory response syndrome due to cellulitis ,continue empiric antibiotics, supportive care GABRIEL (acute kidney injury) Vasomotor nephropathy present on admission IV fluid avoid nephrotoxin, follow renal function Significantly improved, closely monitor Hyponatremia Hyponatremic, sodium above 150 Give half-normal saline, free water Monitor electrolytes Obesity BMI 31.0 Diet modification exercise as tolerated and weight reduction When medically stable General debility Physical therapy occupational therapy Possible placement versus home with home health Type II diabetes Consistent carbohydrate diet, Accu-Chek sliding scale coverage insulin as needed, check A1c DVT prophylaxis SCD to bilateral lower extremities, Heparin subcu Advance care planning/full code Plan of care reviewed with the patient and her nurse DC planning per case management when medically stable We will closely monitor the patient and adjust the management as needed History Interval history: I have seen and examined the patient at the bedside Patient's chart and medications reviewed Patient is noncommunicative chronically ill looking Vital signs noted Hospitalist Physical - Constitutional Vitals: Temp Pulse Resp BP Pulse Ox 100.8 F H 79 18 140/51 98 02/14/21 03:44 02/14/21 06:01 02/14/21 05:23 02/14/21 06:01 02/14/21 07:45 General appearance: Present: mild distress, well-nourished, obese - EENT Eyes: Present: PERRL, EOM intact - Neck Neck: Present: supple, normal ROM - Respiratory Respiratory effort: normal Respiratory: bilateral: diminished, rhonchi, negative: rales, wheezing - Cardiovascular Rhythm: regular Heart Sounds: Present: S1 & S2 - Extremities Extremities: abnormal (Edematous bilateral) Extremity abnormal: edema ( lower extremity) - Abdominal General gastrointestinal: soft, non-tender, non-distended, normal bowel sounds - Integumentary Integumentary: Present: clear, warm - Psychiatric Psychiatric: other (Minimally communicative) - Neurologic Neurologic: moves all extremities Results - Labs CBC & Chem 7: 02/11/21 08:25 02/14/21 09:30 Labs: Laboratory Last Values WBC 12.7 K/mm3 (4.5-11.0) H 02/11/21 08:25 RBC 4.15 M/mm3 (3.65-5.03) 02/11/21 08:25 Hgb 12.3 gm/dl (10.1-14.3) 02/11/21 08:25 Hct 36.8 % (30.3-42.9) 02/11/21 08:25 MCV 89 fl (79-97) 02/11/21 08:25 MCH 30 pg (28-32) 02/11/21 08:25 MCHC 33 % (30-34) 02/11/21 08:25 RDW 13.9 % (13.2-15.2) 02/11/21 08:25 Plt Count 440 K/mm3 (140-440) 02/11/21 08:25 Lymph % (Auto) 12.0 % (13.4-35.0) L 02/11/21 08:25 [place] % (Auto) 8.6 % (0.0-7.3) H 02/11/21 08:25 Eos % (Auto) 0.1 % (0.0-4.3) 02/11/21 08:25 Baso % (Auto) 0.6 % (0.0-1.8) 02/11/21 08:25 Lymph # (Auto) 1.5 K/mm3 (1.2-5.4) 02/11/21 08:25 [place] # (Auto) 1.1 K/mm3 (0.0-0.8) H 02/11/21 08:25 Eos # (Auto) 0.0 K/mm3 (0.0-0.4) 02/11/21 08:25 Baso # (Auto) 0.1 K/mm3 (0.0-0.1) 02/11/21 08:25 Seg Neutrophils % 78.7 % (40.0-70.0) H 02/11/21 08:25 Seg Neutrophils # 10.0 K/mm3 (1.8-7.7) H 02/11/21 08:25 Sodium 156 mmol/L (137-145) H D 02/14/21 09:30 Potassium 4.4 mmol/L (3.6-5.0) D 02/14/21 09:30 Chloride 116.2 mmol/L (98-107) H 02/14/21 09:30 Carbon Dioxide 27 mmol/L (22-30) 02/14/21 09:30 Anion Gap 17 mmol/L 02/14/21 09:30 BUN 21 mg/dL (7-17) H 02/14/21 09:30 Creatinine 0.8 mg/dL (0.6-1.2) 02/14/21 09:30 Estimated GFR > 60 ml/min 02/14/21 09:30 BUN/Creatinine Ratio 26 % 02/14/21 09:30 Glucose 219 mg/dL (65-100) H 02/14/21 09:30 POC Glucose 190 mg/dL (70-105) H 02/12/21 22:02 Calcium 8.5 mg/dL (8.4-10.2) 02/14/21 09:30 Total Bilirubin 0.50 mg/dL (0.1-1.2) 02/10/21 04:50 AST 13 units/L (5-40) 02/10/21 04:50 ALT 10 units/L (7-56) 02/10/21 04:50 Alkaline Phosphatase 89 units/L (35-129) 02/10/21 04:50 Total Protein 5.9 g/dL (6.3-8.2) L 02/10/21 04:50 Albumin 2.7 g/dL (3.9-5) L 02/10/21 04:50 Albumin/Globulin Ratio 0.8 % 02/10/21 04:50 Vancomycin Trough 25.9 ug/mL (5.0-20.0) H 02/12/21 09:02 [place]/IV: Voiding Method Incontinent Active Medications - Current Medications Current Medications: Generic Name Dose Route Start Last Admin Trade Name Freq PRN Reason Stop Dose Admin Acetaminophen 650 mg 02/09/21 12:38 02/14/21 07:50 Acetaminophen 325 Mg Tab PO 650 mg Q4H PRN Administration Pain MILD(1-3)/Fever >100.5/BUCK Amlodipine Besylate 10 mg 02/10/21 10:00 02/14/21 10:33 Amlodipine 10 Mg Tab PO 10 mg DAILY BRIDGET Administration Atorvastatin Calcium 40 mg 02/09/21 22:00 02/13/21 22:30 Atorvastatin 40 Mg Tab PO 40 mg QHS BRIDGET Administration Carvedilol 12.5 mg 02/09/21 22:00 02/14/21 10:33 Carvedilol 12.5 Mg Tab PO 12.5 mg BID BRIDGET Administration Clopidogrel Bisulfate 75 mg 02/10/21 10:00 02/14/21 10:33 Clopidogrel 75 Mg Tab PO 75 mg QDAY BRIDGET Administration Heparin Sodium (Porcine) 5,000 unit 02/09/21 22:00 02/14/21 10:33 Heparin 5,000 Unit/1 Ml Vial SUB-Q 5,000 unit Q12HR BRIDGET Administration Hydralazine HCl 25 mg 02/09/21 14:00 02/14/21 06:01 Hydralazine 25 Mg Tab PO 25 mg Q8HR BRIDGET Administration Vancomycin HCl 1,500 mg/ 530 mls @ 333.333 mls/hr 02/13/21 18:00 02/13/21 17:15 Sodium Chloride IV 333.333 mls/hr Q24H BRIDGET Administration Morphine Sulfate 1 mg 02/12/21 14:49 02/14/21 04:53 Morphine 2 Mg/1 Ml Inj IV 1 mg Q8H PRN Administration Pain, Moderate (4-6) Ondansetron HCl 4 mg 02/09/21 12:38 Ondansetron 4 Mg/2 Ml Inj IV Q8H PRN Nausea And Vomiting Sertraline HCl 100 mg 02/09/21 22:00 02/14/21 10:33 Sertraline 100 Mg Tab PO 100 mg BID BRIDGET Administration Sodium Chloride 10 ml 02/09/21 22:00 02/14/21 10:33 Sodium Chloride 0.9% 10 Ml Flush Syringe IV 10 ml BID BRIDGET Administration Sodium Chloride 10 ml 02/09/21 12:38 Sodium Chloride 0.9% 10 Ml Flush Syringe IV PRN PRN LINE FLUSH Nutrition/Malnutrition Assess - Dietary Evaluation Nutrition/Malnutrition Findings: Nutrition Notes Start: 02/10/21 13:21 Freq: Status: Active Protocol: Document 02/10/21 13:21 EMMA (Rec: 02/10/21 13:33 [email or web address]) Nutrition Notes 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 RN screen for MST and skin risk. Pt with multiple wounds over both LE and ulcer on L heel. Pt doesn' t answer many questions. She states she "hasn't really" been eating but not sure for how long. Unsure of UBW. RN contacted to get pt diet. 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 Is Patient Ambulatory and/or Out of Bed No REE-([facility]-confined to bed) 9990.776 Calculation Used for Recommendations [facility] Additional Notes Protein: (0.8-1.2g/kg AdjBW: 71kg) 57-85g, until GABRIEL is resolved Fluid: 1 ml/kcal Nutrition Intervention Change Diet Order: Advance as able Add Supplement/Snack (indicate name/kcal Glucerna TID /protein ) [place] BID Provides kCal: 850 Provides Protein (gm) 35 Goal #1 Meet at least 75% of protein and energy needs via PO and ONS intakes Goal #2 Wound healing Anticipated Discharge Needs: Cardiac, consistent cho with [place] BID Follow-Up By: 02/14/21 Additional Comments FU for intakes and ONS tolerance
[2021-02-14] MEDS: VANCOMYCIN 1,500 MG in SODIUM CHLORIDE 0.9% 500 ML 500 ML IV SCH ×2 (16:16→17:42)
[2021-02-15] MEDS: hydrALAZINE 25 MG TAB PO SCH ×3 (05:51→22:31)
[2021-02-15] MEDS: SERTRALINE 100 MG TAB PO SCH ×2 (09:44→22:28)
[2021-02-15] MEDS: amLODIPine 10 MG TAB PO SCH (09:44)
[2021-02-15] MEDS: CLOPIDOGREL 75 MG TAB PO SCH (09:45)
[2021-02-15] MEDS: HEPARIN 5,000 UNIT/1 ML VIAL SUB-Q SCH ×2 (09:45→22:28)
[2021-02-15] MEDS: ACETAMINOPHEN 325 MG TAB PO PRN ×2 (09:58→16:33)
[2021-02-15] MEDS: carvediloL 12.5 MG TAB PO SCH ×2 (10:04→22:30)
--- NOTE | 2021-02-15 12:50 | Progress Note ---
Assessment and Plan Assessment and plan: Type 2 diabetes mellitus ; uncontrolled Patient is not on any home diabetic medications Accu-Chek sliding scale coverage ADA diet Insulin as needed,A1c 3 months ago was 8.4 Diabetic education, diabetic diet education cellulitis of both lower extremities Elevate the limb , wound care, antibiotics. ID consult if needed Systemic inflammatory response syndrome due to cellulitis ,continue empiric antibiotics, supportive care GABRIEL (acute kidney injury) Vasomotor nephropathy present on admission IV fluid avoid nephrotoxin, follow renal function Significantly improved, closely monitor Hypernatremia Hyponatremic, sodium above 150 free water, Monitor electrolytes Obesity BMI 31.0 Diet modification exercise as tolerated and weight reduction When medically stable General debility Physical therapy occupational therapy Possible placement versus home with home health Type II diabetes Consistent carbohydrate diet, Accu-Chek sliding scale coverage insulin as needed, check A1c DVT prophylaxis SCD to bilateral lower extremities, Heparin subcu Advance care planning/full code Plan of care reviewed with the patient and her nurse DC planning per case management when medically stable We will closely monitor the patient and adjust the management as needed 02/14/2021; dehydration hyponatremia Free water, closely monitor electrolytes Supportive care 02/15/2021; patient feels slightly better Cellulitis minimal improvement, elevate the limb On IV antibiotics, follow cultures And control blood sugars, increase 70/30 insulin Disposition; closely monitor the patient, DC planning per case management, placement Brief history; 55 YO Female with Obesity, Debililty, DM, HTN, CVA, Autism presents ED for evaluation. Patient is confused with diminished cognition department.The patient was found to have bilateral lower extremity cellulitis, debility, hyponatremia, systemic inflammatory response syndrome, acute kidney injury. Patient initiated on IV antibiotic therapy and admitted to medical floor. No further history is obtainable. Patient is on IV antibiotics. Uncontrolled blood sugars, and dehydration with hypernatremia History Interval history: I have seen and examined the patient at the bedside Patient is minimally communicative Not in acute distress Vital signs noted Hospitalist Physical - Constitutional Vitals: Temp Pulse Resp BP Pulse Ox 98.1 F 75 20 139/65 91 02/15/21 04:50 02/15/21 09:44 02/15/21 04:50 02/15/21 09:44 02/15/21 04:50 General appearance: Present: no acute distress, well-nourished, obese - EENT Eyes: Present: PERRL, EOM intact - Neck Neck: Present: supple, normal ROM - Respiratory Respiratory effort: normal Respiratory: bilateral: diminished, rhonchi, negative: rales, wheezing - Cardiovascular Rhythm: regular Heart Sounds: Present: S1 & S2 - Extremities Extremities: abnormal (Chronic changes) Extremity abnormal: edema - Abdominal General gastrointestinal: soft, non-tender, non-distended, normal bowel sounds - Integumentary Integumentary: Present: clear, warm - Psychiatric Psychiatric: appropriate mood/affect, other (Minimally communicative) - Neurologic Neurologic: moves all extremities Results - Labs CBC & Chem 7: 02/11/21 08:25 02/14/21 09:30 Labs: Laboratory Last Values WBC 12.7 K/mm3 (4.5-11.0) H 02/11/21 08:25 RBC 4.15 M/mm3 (3.65-5.03) 02/11/21 08:25 Hgb 12.3 gm/dl (10.1-14.3) 02/11/21 08:25 Hct 36.8 % (30.3-42.9) 02/11/21 08:25 MCV 89 fl (79-97) 02/11/21 08:25 MCH 30 pg (28-32) 02/11/21 08:25 MCHC 33 % (30-34) 02/11/21 08:25 RDW 13.9 % (13.2-15.2) 02/11/21 08:25 Plt Count 440 K/mm3 (140-440) 02/11/21 08:25 Lymph % (Auto) 12.0 % (13.4-35.0) L 02/11/21 08:25 [place] % (Auto) 8.6 % (0.0-7.3) H 02/11/21 08:25 Eos % (Auto) 0.1 % (0.0-4.3) 02/11/21 08:25 Baso % (Auto) 0.6 % (0.0-1.8) 02/11/21 08:25 Lymph # (Auto) 1.5 K/mm3 (1.2-5.4) 02/11/21 08:25 [place] # (Auto) 1.1 K/mm3 (0.0-0.8) H 02/11/21 08:25 Eos # (Auto) 0.0 K/mm3 (0.0-0.4) 02/11/21 08:25 Baso # (Auto) 0.1 K/mm3 (0.0-0.1) 02/11/21 08:25 Seg Neutrophils % 78.7 % (40.0-70.0) H 02/11/21 08:25 Seg Neutrophils # 10.0 K/mm3 (1.8-7.7) H 02/11/21 08:25 Sodium 156 mmol/L (137-145) H D 02/14/21 09:30 Potassium 4.4 mmol/L (3.6-5.0) D 02/14/21 09:30 Chloride 116.2 mmol/L (98-107) H 02/14/21 09:30 Carbon Dioxide 27 mmol/L (22-30) 02/14/21 09:30 Anion Gap 17 mmol/L 02/14/21 09:30 BUN 21 mg/dL (7-17) H 02/14/21 09:30 Creatinine 0.8 mg/dL (0.6-1.2) 02/14/21 09:30 Estimated GFR > 60 ml/min 02/14/21 09:30 BUN/Creatinine Ratio 26 % 02/14/21 09:30 Glucose 219 mg/dL (65-100) H 02/14/21 09:30 POC Glucose 216 mg/dL (70-105) H 02/15/21 07:27 Calcium 8.5 mg/dL (8.4-10.2) 02/14/21 09:30 Total Bilirubin 0.50 mg/dL (0.1-1.2) 02/10/21 04:50 AST 13 units/L (5-40) 02/10/21 04:50 ALT 10 units/L (7-56) 02/10/21 04:50 Alkaline Phosphatase 89 units/L (35-129) 02/10/21 04:50 Total Protein 5.9 g/dL (6.3-8.2) L 02/10/21 04:50 Albumin 2.7 g/dL (3.9-5) L 02/10/21 04:50 Albumin/Globulin Ratio 0.8 % 02/10/21 04:50 Vancomycin Trough 25.9 ug/mL (5.0-20.0) H 02/12/21 09:02 Microbiology: Microbiology 02/14/21 18:28 Peripheral/Venous Blood Culture - Preliminary Culture in Progress 02/14/21 18:28 Peripheral/Venous Blood Culture - Preliminary Culture in Progress [place]/IV: Voiding Method External Female Catheter Active Medications - Current Medications Current Medications: Generic Name Dose Route Start Last Admin Trade Name Freq PRN Reason Stop Dose Admin Acetaminophen 650 mg 02/09/21 12:38 02/15/21 09:58 Acetaminophen 325 Mg Tab PO 650 mg Q4H PRN Administration Pain MILD(1-3)/Fever >100.5/BUCK Amlodipine Besylate 10 mg 02/10/21 10:00 02/15/21 09:44 Amlodipine 10 Mg Tab PO 10 mg DAILY BRIDGET Administration Atorvastatin Calcium 40 mg 02/09/21 22:00 02/14/21 21:36 Atorvastatin 40 Mg Tab PO 40 mg QHS BRIDGET Administration Carvedilol 12.5 mg 02/09/21 22:00 02/15/21 10:04 Carvedilol 12.5 Mg Tab PO 12.5 mg BID BRIDGET Administration Clopidogrel Bisulfate 75 mg 02/10/21 10:00 02/15/21 09:45 Clopidogrel 75 Mg Tab PO 75 mg QDAY BRIDGET Administration Heparin Sodium (Porcine) 5,000 unit 02/09/21 22:00 02/15/21 09:45 Heparin 5,000 Unit/1 Ml Vial SUB-Q 5,000 unit Q12HR BRIDGET Administration Hydralazine HCl 25 mg 02/09/21 14:00 02/15/21 05:51 Hydralazine 25 Mg Tab PO 25 mg Q8HR BRIDGET Administration Vancomycin HCl 1,500 mg/ 530 mls @ 333.333 mls/hr 02/13/21 18:00 02/14/21 17:42 Sodium Chloride IV Not Given Q24H REPLACED BY [facility] Insulin Human Isoph/Insulin Regular 5 unit 02/15/21 17:00 Insulin Nph/Regular 70/30 Inj SUB-Q BIDDIAB REPLACED BY [facility] Insulin Human Regular 0 units 02/15/21 16:30 Insulin Regular, Human 100 Units/1 Ml SUB-Q ACHS REPLACED BY [facility] Protocol Morphine Sulfate 1 mg 02/12/21 14:49 02/14/21 13:04 Morphine 2 Mg/1 Ml Inj IV 1 mg Q8H PRN Administration Pain, Moderate (4-6) Ondansetron HCl 4 mg 02/09/21 12:38 Ondansetron 4 Mg/2 Ml Inj IV Q8H PRN Nausea And Vomiting Sertraline HCl 100 mg 02/09/21 22:00 02/15/21 09:44 Sertraline 100 Mg Tab PO 100 mg BID BRIDGET Administration Sodium Chloride 10 ml 02/09/21 22:00 02/15/21 09:45 Sodium Chloride 0.9% 10 Ml Flush Syringe IV 10 ml BID BRIDGET Administration Sodium Chloride 10 ml 02/09/21 12:38 Sodium Chloride 0.9% 10 Ml Flush Syringe IV PRN PRN LINE FLUSH Nutrition/Malnutrition Assess - Dietary Evaluation Nutrition/Malnutrition Findings: Nutrition Notes Start: 02/10/21 13:21 Freq: Status: Active Protocol: Document 02/14/21 11:45 AL (Rec: 02/14/21 12:00 AL [id number]) Co-Sign 02/14/21 11:45 MK Nutrition Notes Initial or Follow up Reassessment Current Diagnosis Acute Kidney Injury,Diabetes, Hypertension Other Pertinent Diagnosis debility, AMS, SIRS, cellulitis of both LE Current Diet Mechanical Soft Labs/Tests POC BG 190 Pertinent Medications Reviewed Height 5 ft 5 in Weight 84.6 kg [place] Body Weight (kg) 56.81 BMI 31.0 Intake Prior to Admission Poor Weight Status Obese Subjective/Other Information F/U for inakes and ONS tolerance. Pt tolerates Mechanical soft diet at 50%, according to ADL. 2 unopened Glucernas on table at time of visit. Nurse gave one of them to pt, which she tolerated at 40%. 2 unopened [place] packets on breakfast tray Percent of energy/protein needs met: 67%/93% Burn Absent Trauma Absent Minimum of two criteria No physical signs of malnutrition #2 Nutrition Diagnosis Increased nutrient needs ( specify in comment below) Comments: protein Diagnosis Progress(for reassessment Continues documentation) #1 Nutrition Diagnosis Inadequate oral intake As Evidenced by Signs and Symptoms pt meets 67% of estimated energy needs Diagnosis Progress(for reassessment Improved documentation) Is patient on ventilator? No Is Patient Ambulatory and/or Out of Bed No REE-([place]-confined to bed) 9587.033 Calculation Used for Recommendations [place] Additional Notes Protein: (0.8-1.2g/kg AdjBW: 71kg) 57-85g, until GABRIEL is resolved Fluid: 1 ml/kcal Nutrition Intervention Change Diet Order: Current diet as ordered. Add Supplement/Snack (indicate name/kcal Glucerna TID /protein ) [place] BID Provides kCal: 850 Provides Protein (gm) 35 Goal #1 Meet at least 75% of protein and energy needs via PO and ONS intakes Goal #2 Wound healing Anticipated Discharge Needs: Cardiac, consistent cho with [place]de BID Follow-Up By: 02/16/21 Additional Comments F/U for intakes and ONS tolerance
[2021-02-15] MEDS: INSULIN REGULAR, HUMAN 100 UNITS/1 ML SUB-Q SCH ×2 (16:28→22:29)
[2021-02-15] MEDS ORDERED: INSULIN NPH/REGULAR 70/30 INJ SUB-Q SCH (17:00)
[2021-02-15] MEDS: VANCOMYCIN 1,500 MG in SODIUM CHLORIDE 0.9% 500 ML 500 ML IV SCH (17:09)
[2021-02-16] MEDS: hydrALAZINE 25 MG TAB PO SCH ×3 (05:18→21:50)
[2021-02-16] MEDS: INSULIN NPH/REGULAR 70/30 INJ SUB-Q SCH ×2 (08:26→17:19)
[2021-02-16] MEDS: INSULIN REGULAR, HUMAN 100 UNITS/1 ML SUB-Q SCH ×4 (08:27→22:04)
[2021-02-16] MEDS: SERTRALINE 100 MG TAB PO SCH ×2 (09:56→21:49)
[2021-02-16] MEDS: amLODIPine 10 MG TAB PO SCH (09:56)
[2021-02-16] MEDS: CLOPIDOGREL 75 MG TAB PO SCH (09:56)
[2021-02-16] MEDS: carvediloL 12.5 MG TAB PO SCH ×2 (09:57→21:49)
[2021-02-16] MEDS: HEPARIN 5,000 UNIT/1 ML VIAL SUB-Q SCH ×2 (09:57→21:52)
--- NOTE | 2021-02-16 11:58 | Progress Note ---
Assessment and Plan Assessment and plan: Assessment and Plan Assessment and plan: Type 2 diabetes mellitus ; uncontrolled Patient is not on any home diabetic medications Accu-Chek sliding scale coverage ADA diet Insulin as needed,A1c 3 months ago was 8.4 Diabetic education, diabetic diet education cellulitis of both lower extremities Elevate the limb , wound care, antibiotics. ID consult if needed Systemic inflammatory response syndrome due to cellulitis ,continue empiric antibiotics, supportive care GABRIEL (acute kidney injury) Vasomotor nephropathy present on admission IV fluid avoid nephrotoxin, follow renal function Significantly improved, closely monitor Hypernatremia Hyponatremic, sodium above 150 free water, Monitor electrolytes Obesity BMI 31.0 Diet modification exercise as tolerated and weight reduction When medically stable General debility Physical therapy occupational therapy Possible placement versus home with home health Type II diabetes Consistent carbohydrate diet, Accu-Chek sliding scale coverage insulin as needed, check A1c DVT prophylaxis SCD to bilateral lower extremities, Heparin subcu Advance care planning/full code Plan of care reviewed with the patient and her nurse DC planning per case management when medically stable We will closely monitor the patient and adjust the management as needed 02/14/2021; dehydration hyponatremia Free water, closely monitor electrolytes Supportive care 02/15/2021; patient feels slightly better Cellulitis minimal improvement, elevate the limb On IV antibiotics, follow cultures And control blood sugars, increase 70/30 insulin Disposition; closely monitor the patient, DC planning per case management, placement 02/16/21 Patient is doing better. Sodium is 156. We will recheck the BMP Cellulitis minimal improvement, elevate the limb on IV antibiotic. Follow culture Possible discharge plan Home with hospice tomorrow as per family wishes Case management working on discharge planning. History Interval history: Patient is seen and examined Patient is clinically same Patient is minimally communicative No acute distress Vital signs are stable Hospitalist Physical - Constitutional Vitals: Temp Pulse Resp BP Pulse Ox 98.0 F 72 18 122/63 90 02/16/21 11:23 02/16/21 11:53 02/16/21 11:23 02/16/21 11:23 02/16/21 03:58 General appearance: Present: no acute distress, well-nourished, obese Results - Labs CBC & Chem 7: 02/11/21 08:25 02/14/21 09:30 Labs: Laboratory Last Values WBC 12.7 K/mm3 (4.5-11.0) H 02/11/21 08:25 RBC 4.15 M/mm3 (3.65-5.03) 02/11/21 08:25 Hgb 12.3 gm/dl (10.1-14.3) 02/11/21 08:25 Hct 36.8 % (30.3-42.9) 02/11/21 08:25 MCV 89 fl (79-97) 02/11/21 08:25 MCH 30 pg (28-32) 02/11/21 08:25 MCHC 33 % (30-34) 02/11/21 08:25 RDW 13.9 % (13.2-15.2) 02/11/21 08:25 Plt Count 440 K/mm3 (140-440) 02/11/21 08:25 Lymph % (Auto) 12.0 % (13.4-35.0) L 02/11/21 08:25 [place] % (Auto) 8.6 % (0.0-7.3) H 02/11/21 08:25 Eos % (Auto) 0.1 % (0.0-4.3) 02/11/21 08:25 Baso % (Auto) 0.6 % (0.0-1.8) 02/11/21 08:25 Lymph # (Auto) 1.5 K/mm3 (1.2-5.4) 02/11/21 08:25 [place] # (Auto) 1.1 K/mm3 (0.0-0.8) H 02/11/21 08:25 Eos # (Auto) 0.0 K/mm3 (0.0-0.4) 02/11/21 08:25 Baso # (Auto) 0.1 K/mm3 (0.0-0.1) 02/11/21 08:25 Seg Neutrophils % 78.7 % (40.0-70.0) H 02/11/21 08:25 Seg Neutrophils # 10.0 K/mm3 (1.8-7.7) H 02/11/21 08:25 Sodium 156 mmol/L (137-145) H D 02/14/21 09:30 Potassium 4.4 mmol/L (3.6-5.0) D 02/14/21 09:30 Chloride 116.2 mmol/L (98-107) H 02/14/21 09:30 Carbon Dioxide 27 mmol/L (22-30) 02/14/21 09:30 Anion Gap 17 mmol/L 02/14/21 09:30 BUN 21 mg/dL (7-17) H 02/14/21 09:30 Creatinine 0.8 mg/dL (0.6-1.2) 02/14/21 09:30 Estimated GFR > 60 ml/min 02/14/21 09:30 BUN/Creatinine Ratio 26 % 02/14/21 09:30 Glucose 219 mg/dL (65-100) H 02/14/21 09:30 POC Glucose 173 mg/dL (70-105) H 02/16/21 11:20 Calcium 8.5 mg/dL (8.4-10.2) 02/14/21 09:30 Total Bilirubin 0.50 mg/dL (0.1-1.2) 02/10/21 04:50 AST 13 units/L (5-40) 02/10/21 04:50 ALT 10 units/L (7-56) 02/10/21 04:50 Alkaline Phosphatase 89 units/L (35-129) 02/10/21 04:50 Total Protein 5.9 g/dL (6.3-8.2) L 02/10/21 04:50 Albumin 2.7 g/dL (3.9-5) L 02/10/21 04:50 Albumin/Globulin Ratio 0.8 % 02/10/21 04:50 Vancomycin Trough 46.6 ug/mL (5.0-20.0) H 02/15/21 18:47 Microbiology: Microbiology 02/14/21 18:28 Peripheral/Venous Blood Culture - Preliminary NO GROWTH AFTER 24 HOURS 02/14/21 18:28 Peripheral/Venous Blood Culture - Preliminary NO GROWTH AFTER 24 HOURS [place]/IV: Voiding Method Incontinent Active Medications - Current Medications Current Medications: Generic Name Dose Route Start Last Admin Trade Name Freq PRN Reason Stop Dose Admin Acetaminophen 650 mg 02/09/21 12:38 02/15/21 16:33 Acetaminophen 325 Mg Tab PO 650 mg Q4H PRN Administration Pain MILD(1-3)/Fever >100.5/BUCK Amlodipine Besylate 10 mg 02/10/21 10:00 02/16/21 09:56 Amlodipine 10 Mg Tab PO 10 mg DAILY BRIDGET Administration Atorvastatin Calcium 40 mg 02/09/21 22:00 02/15/21 22:28 Atorvastatin 40 Mg Tab PO 40 mg QHS BRIDGET Administration Carvedilol 12.5 mg 02/09/21 22:00 02/16/21 09:57 Carvedilol 12.5 Mg Tab PO 12.5 mg BID BRIDGET Administration Clopidogrel Bisulfate 75 mg 02/10/21 10:00 02/16/21 09:56 Clopidogrel 75 Mg Tab PO 75 mg QDAY BRIDGET Administration Heparin Sodium (Porcine) 5,000 unit 02/09/21 22:00 02/16/21 09:57 Heparin 5,000 Unit/1 Ml Vial SUB-Q 5,000 unit Q12HR BRIDGET Administration Hydralazine HCl 25 mg 02/09/21 14:00 02/16/21 05:18 Hydralazine 25 Mg Tab PO 25 mg Q8HR BRIDGET Administration Vancomycin HCl 1,500 mg/ 530 mls @ 333.333 mls/hr 02/13/21 18:00 02/15/21 17:09 Sodium Chloride IV 333.333 mls/hr Q24H BRIDGET Administration Insulin Human Isoph/Insulin Regular 15 unit 02/16/21 08:00 02/16/21 08:26 Insulin Nph/Regular 70/30 Inj SUB-Q 15 unit BIDDIAB BRIDGET Administration Insulin Human Regular 0 units 02/15/21 16:30 02/16/21 08:27 Insulin Regular, Human 100 Units/1 Ml SUB-Q 2 units ACHS BRIDGET Administration Protocol Morphine Sulfate 1 mg 02/12/21 14:49 02/14/21 13:04 Morphine 2 Mg/1 Ml Inj IV 1 mg Q8H PRN Administration Pain, Moderate (4-6) Ondansetron HCl 4 mg 02/09/21 12:38 Ondansetron 4 Mg/2 Ml Inj IV Q8H PRN Nausea And Vomiting Sertraline HCl 100 mg 02/09/21 22:00 02/16/21 09:56 Sertraline 100 Mg Tab PO 100 mg BID BRIDGET Administration Sodium Chloride 10 ml 02/09/21 22:00 02/16/21 09:57 Sodium Chloride 0.9% 10 Ml Flush Syringe IV 10 ml BID BRIDGET Administration Sodium Chloride 10 ml 02/09/21 12:38 Sodium Chloride 0.9% 10 Ml Flush Syringe IV PRN PRN LINE FLUSH Nutrition/Malnutrition Assess - Dietary Evaluation Nutrition/Malnutrition Findings: Nutrition Notes Start: 02/10/21 13:21 Freq: Status: Active Protocol: Document 02/16/21 09:34 AT (Rec: 02/16/21 09:43 AT [id number]) Co-Sign 02/16/21 09:34 CW Nutrition Notes Initial or Follow up Reassessment Current Diagnosis Acute Kidney Injury,Decubitus( Pressure Ulcer),Diabetes, Hypertension Other Pertinent Diagnosis debility, AMS, SIRS, cellulitis of both LE Current Diet Mechanical Soft Labs/Tests POC BG 256 5/4 Na 156 BUN 21 Pertinent Medications Humulin Height 5 ft 5 in Weight 84.6 kg [place] Body Weight (kg) 56.81 BMI 31.0 Intake Prior to Admission Poor Weight Status Obese Subjective/Other Information Follow up for intakes and ONS tolerance. Per chart, pt consumed 17% of meals yesterday. Skin Integrity/Comment Bobby Score: 9; pressure ulcers Nutrition Intervention Change Diet Order: Add Consistent CHO modifications - Malnutrition Assessment Minimum of two criteria: No - Attestation Statement I have reviewed and agreed w/ Malnutrition eval & tx plan: Yes
[2021-02-16] MEDS: MORPHINE 2 MG/1 ML INJ IV PRN ×2 (14:55→23:43)
[2021-02-16 18:23] LABS: Basophils # (Auto) 0.1 K/mm3 (0.0-0.1); Basophils % (Auto) 0.4 % (0.0-1.8); Eosinophils # (Auto) 0.2 K/mm3 (0.0-0.4); Eosinophils % (Auto) 1.7 % (0.0-4.3); Hematocrit 39.5 % (30.3-42.9); Hemoglobin 12.6 gm/dl (10.1-14.3); Lymphocytes # (Auto) 2.1 K/mm3 (1.2-5.4); Mean Corpuscular HGB Conc 32 % (30-34); Mean Corpuscular Volume 90 fl (79-97); Monocytes # (Auto) 1.1 K/mm3 (0.0-0.8); Monocytes % (Auto) 8.6 % (0.0-7.3); Platelet Count 418 K/mm3 (140-440); Red Blood Count 4.41 M/mm3 (3.65-5.03); Red Cell Distribution Width 14.4 % (13.2-15.2)
[2021-02-16 18:33] LABS: Blood Urea Nitrogen 26 mg/dL (7-17); Calcium 8.2 mg/dL (8.4-10.2); Hemolysis Index 0
[2021-02-16 18:36] LABS: BUN/Creatinine Ratio 52
[2021-02-16] MEDS: VANCOMYCIN 1,500 MG in SODIUM CHLORIDE 0.9% 500 ML 500 ML IV SCH (19:19)
[2021-02-17] MEDS: hydrALAZINE 25 MG TAB PO SCH ×3 (06:01→21:07)
[2021-02-17] MEDS: ACETAMINOPHEN 325 MG TAB PO PRN (06:21)
[2021-02-17] MEDS: amLODIPine 10 MG TAB PO SCH (09:13)
[2021-02-17] MEDS: carvediloL 12.5 MG TAB PO SCH ×2 (09:14→21:07)
[2021-02-17] MEDS: CLOPIDOGREL 75 MG TAB PO SCH (09:14)
[2021-02-17] MEDS: HEPARIN 5,000 UNIT/1 ML VIAL SUB-Q SCH ×2 (09:14→21:07)
[2021-02-17] MEDS: SERTRALINE 100 MG TAB PO SCH ×2 (09:14→21:07)
[2021-02-17] MEDS: INSULIN REGULAR, HUMAN 100 UNITS/1 ML SUB-Q SCH ×4 (09:19→22:16)
[2021-02-17] MEDS: INSULIN NPH/REGULAR 70/30 INJ SUB-Q SCH ×2 (09:20→19:30)
--- NOTE | 2021-02-17 11:59 | Progress Note ---
Assessment and Plan Assessment and plan: Assessment and Plan Assessment and plan: Type 2 diabetes mellitus ; uncontrolled Patient is not on any home diabetic medications Accu-Chek sliding scale coverage ADA diet Insulin as needed,A1c 3 months ago was 8.4 Diabetic education, diabetic diet education cellulitis of both lower extremities Elevate the limb , wound care, antibiotics. ID consult if needed Systemic inflammatory response syndrome due to cellulitis ,continue empiric antibiotics, supportive care GABRIEL (acute kidney injury) Vasomotor nephropathy present on admission IV fluid avoid nephrotoxin, follow renal function Significantly improved, closely monitor Hypernatremia Hyponatremic, sodium above 150 free water, Monitor electrolytes Obesity BMI 31.0 Diet modification exercise as tolerated and weight reduction When medically stable General debility Physical therapy occupational therapy Possible placement versus home with home health Type II diabetes Consistent carbohydrate diet, Accu-Chek sliding scale coverage insulin as needed, check A1c DVT prophylaxis SCD to bilateral lower extremities, Heparin subcu Advance care planning/full code Plan of care reviewed with the patient and her nurse DC planning per case management when medically stable We will closely monitor the patient and adjust the management as needed 02/14/2021; dehydration hyponatremia Free water, closely monitor electrolytes Supportive care 02/15/2021; patient feels slightly better Cellulitis minimal improvement, elevate the limb On IV antibiotics, follow cultures And control blood sugars, increase 70/30 insulin Disposition; closely monitor the patient, DC planning per case management, placement 02/16/21 Patient is doing better. Sodium is 156. We will recheck the BMP Cellulitis minimal improvement, elevate the limb on IV antibiotic. Follow culture Possible discharge plan Home with hospice tomorrow as per family wishes Case management working on discharge planning. 02/17/21 Patient is clinically same. No new problem. Patient is not talking. Communicate with nodding the head Sodium is improved 136, Cellulitis is slowly improvement. WBC 13.4. Continue IV antibiotic and elevate the limb. Follow culture Family wants to take the patient home with home hospice. Case discussed with case management for discharge planning. History Interval history: Patient is seen and examined Patient is clinically same Patient is nonverbal, No acute distress Vital signs are stable Hospitalist Physical - Constitutional Vitals: Temp Pulse Resp BP Pulse Ox 98.6 F 61 17 112/47 92 02/17/21 05:35 02/17/21 09:14 02/17/21 06:21 02/17/21 09:14 02/17/21 05:35 General appearance: Present: no acute distress, well-nourished, obese Results - Labs CBC & Chem 7: 02/16/21 17:44 02/16/21 17:44 Labs: Laboratory Last Values WBC 13.4 K/mm3 (4.5-11.0) H 02/16/21 17:44 RBC 4.41 M/mm3 (3.65-5.03) 02/16/21 17:44 Hgb 12.6 gm/dl (10.1-14.3) 02/16/21 17:44 Hct 39.5 % (30.3-42.9) 02/16/21 17:44 MCV 90 fl (79-97) 02/16/21 17:44 MCH 29 pg (28-32) 02/16/21 17:44 MCHC 32 % (30-34) 02/16/21 17:44 RDW 14.4 % (13.2-15.2) 02/16/21 17:44 Plt Count 418 K/mm3 (140-440) 02/16/21 17:44 Lymph % (Auto) 16.0 % (13.4-35.0) 02/16/21 17:44 [place] % (Auto) 8.6 % (0.0-7.3) H 02/16/21 17:44 Eos % (Auto) 1.7 % (0.0-4.3) 02/16/21 17:44 Baso % (Auto) 0.4 % (0.0-1.8) 02/16/21 17:44 Lymph # (Auto) 2.1 K/mm3 (1.2-5.4) 02/16/21 17:44 [place] # (Auto) 1.1 K/mm3 (0.0-0.8) H 02/16/21 17:44 Eos # (Auto) 0.2 K/mm3 (0.0-0.4) 02/16/21 17:44 Baso # (Auto) 0.1 K/mm3 (0.0-0.1) 02/16/21 17:44 Seg Neutrophils % 73.3 % (40.0-70.0) H 02/16/21 17:44 Seg Neutrophils # 9.8 K/mm3 (1.8-7.7) H 02/16/21 17:44 Sodium 136 mmol/L (137-145) L D 02/16/21 17:44 Potassium 3.9 mmol/L (3.6-5.0) 02/16/21 17:44 Chloride 99.8 mmol/L (98-107) 02/16/21 17:44 Carbon Dioxide 30 mmol/L (22-30) 02/16/21 17:44 Anion Gap 10 mmol/L 02/16/21 17:44 BUN 26 mg/dL (7-17) H 02/16/21 17:44 Creatinine 0.5 mg/dL (0.6-1.2) L 02/16/21 17:44 Estimated GFR > 60 ml/min 02/16/21 17:44 BUN/Creatinine Ratio 52 % 02/16/21 17:44 Glucose 133 mg/dL (65-100) H 02/16/21 17:44 POC Glucose 130 mg/dL (70-105) H 02/16/21 22:03 Calcium 8.2 mg/dL (8.4-10.2) L 02/16/21 17:44 Total Bilirubin 0.50 mg/dL (0.1-1.2) 02/10/21 04:50 AST 13 units/L (5-40) 02/10/21 04:50 ALT 10 units/L (7-56) 02/10/21 04:50 Alkaline Phosphatase 89 units/L (35-129) 02/10/21 04:50 Total Protein 5.9 g/dL (6.3-8.2) L 02/10/21 04:50 Albumin 2.7 g/dL (3.9-5) L 02/10/21 04:50 Albumin/Globulin Ratio 0.8 % 02/10/21 04:50 Vancomycin Trough 10.8 ug/mL (5.0-20.0) 02/16/21 17:44 Coronavirus (PCR) Negative (Negative) 02/15/21 10:06 Microbiology: Microbiology 02/14/21 18:28 Peripheral/Venous Blood Culture - Preliminary NO GROWTH AFTER 48 HOURS 02/14/21 18:28 Peripheral/Venous Blood Culture - Preliminary NO GROWTH AFTER 48 HOURS [place]/IV: Voiding Method Incontinent Active Medications - Current Medications Current Medications: Generic Name Dose Route Start Last Admin Trade Name Freq PRN Reason Stop Dose Admin Acetaminophen 650 mg 02/09/21 12:38 02/17/21 06:21 Acetaminophen 325 Mg Tab PO 650 mg Q4H PRN Administration Pain MILD(1-3)/Fever >100.5/BUCK Amlodipine Besylate 10 mg 02/10/21 10:00 02/17/21 09:13 Amlodipine 10 Mg Tab PO Not Given DAILY [facility] Atorvastatin Calcium 40 mg 02/09/21 22:00 02/16/21 21:49 Atorvastatin 40 Mg Tab PO 40 mg QHS BRIDGET Administration Carvedilol 12.5 mg 02/09/21 22:00 02/17/21 09:14 Carvedilol 12.5 Mg Tab PO 12.5 mg BID BRIDGET Administration Clopidogrel Bisulfate 75 mg 02/10/21 10:00 02/17/21 09:14 Clopidogrel 75 Mg Tab PO 75 mg QDAY BRIDGET Administration Heparin Sodium (Porcine) 5,000 unit 02/09/21 22:00 02/17/21 09:14 Heparin 5,000 Unit/1 Ml Vial SUB-Q 5,000 unit Q12HR BRIDGET Administration Hydralazine HCl 25 mg 02/09/21 14:00 02/17/21 06:01 Hydralazine 25 Mg Tab PO Not Given Q8HR BRIDGET Vancomycin HCl 1,500 mg/ 530 mls @ 333.333 mls/hr 02/13/21 18:00 02/16/21 19:19 Sodium Chloride IV 02/18/21 19:59 333.333 mls/hr Q24H BRIDGET Administration Insulin Human Isoph/Insulin Regular 15 unit 02/16/21 08:00 02/17/21 09:20 Insulin Nph/Regular 70/30 Inj SUB-Q 15 unit BIDDIAB BRIDGET Administration Insulin Human Regular 0 units 02/15/21 16:30 02/17/21 09:19 Insulin Regular, Human 100 Units/1 Ml SUB-Q 2 units ACHS BRIDGET Administration Protocol Morphine Sulfate 1 mg 02/12/21 14:49 02/16/21 23:43 Morphine 2 Mg/1 Ml Inj IV 1 mg Q8H PRN Administration Pain, Moderate (4-6) Ondansetron HCl 4 mg 02/09/21 12:38 Ondansetron 4 Mg/2 Ml Inj IV Q8H PRN Nausea And Vomiting Sertraline HCl 100 mg 02/09/21 22:00 02/17/21 09:14 Sertraline 100 Mg Tab PO 100 mg BID BRIDGET Administration Sodium Chloride 10 ml 02/09/21 22:00 02/17/21 09:15 Sodium Chloride 0.9% 10 Ml Flush Syringe IV 10 ml BID BRIDGET Administration Sodium Chloride 10 ml 02/09/21 12:38 Sodium Chloride 0.9% 10 Ml Flush Syringe IV PRN PRN LINE FLUSH Nutrition/Malnutrition Assess - Dietary Evaluation Nutrition/Malnutrition Findings: Nutrition Notes Start: 02/10/21 13:21 Freq: Status: Active Protocol: Document 02/16/21 09:34 AT (Rec: 02/16/21 09:43 AT [id number]) Co-Sign 02/16/21 09:34 CW Nutrition Notes Initial or Follow up Reassessment Current Diagnosis Acute Kidney Injury,Decubitus( Pressure Ulcer),Diabetes, Hypertension Other Pertinent Diagnosis debility, AMS, SIRS, cellulitis of both LE Current Diet Mechanical Soft Labs/Tests POC BG 256 5/4 Na 156 BUN 21 Pertinent Medications [place] Height 5 ft 5 in Weight 84.6 kg [place] Body Weight (kg) 56.81 BMI 31.0 Intake Prior to Admission Poor Weight Status Obese Subjective/Other Information Follow up for intakes and ONS tolerance. Per chart, pt consumed 17% of meals yesterday. Per RN, pt consumed 25% of breakfast and 100% ONS . Pt continues to drink [place] BID per RN. Food preferences recorded. Percent of energy/protein needs met: 79%/100% Burn Absent Trauma Absent Skin Integrity/Comment Bobby Score: 9; pressure ulcers Current % PO Poor (25-49%) Minimum of two criteria No Reduced Helmet Coverer Strength Measurably Reduced (severe) #2 Nutrition Diagnosis Increased nutrient needs ( specify in comment below) Diagnosis Progress(for reassessment Continues documentation) #1 Nutrition Diagnosis Inadequate oral intake As Evidenced by Signs and Symptoms pt consuming 25% Diagnosis Progress(for reassessment Continues documentation) Is patient on ventilator? No Is Patient Ambulatory and/or Out of Bed No REE-([facility]-confined to bed) 3336.397 Calculation Used for Recommendations [facility] Additional Notes Protein: (0.8-1.2g/kg AdjBW: 71kg) 57-85g, until GABRIEL is resolved Fluid: 1 ml/kcal Nutrition Intervention Change Diet Order: Add Consistent CHO modifications Add Supplement/Snack (indicate name/kcal Glucerna TID /protein ) Clyde BID Provides kCal: 850 Provides Protein (gm) 35 Goal #1 Meet at least 75% of protein and energy needs via PO and ONS intakes Goal #2 Wound healing Anticipated Discharge Needs: Cardiac, consistent cho with Clyde BID Follow-Up By: 02/20/21 Additional Comments F/U for stable intakes - Malnutrition Assessment Minimum of two criteria: No - Attestation Statement I have reviewed and agreed w/ Malnutrition eval & tx plan: Yes
[2021-02-17] MEDS: VANCOMYCIN 1,500 MG in SODIUM CHLORIDE 0.9% 500 ML 500 ML IV SCH (17:41)
[2021-02-18] MEDS: hydrALAZINE 25 MG TAB PO SCH (05:00)
[2021-02-18] MEDS: INSULIN REGULAR, HUMAN 100 UNITS/1 ML SUB-Q SCH ×2 (07:30→11:35)
[2021-02-18] MEDS: INSULIN NPH/REGULAR 70/30 INJ SUB-Q SCH (08:00)
[2021-02-18] MEDS: SERTRALINE 100 MG TAB PO SCH (09:21)
[2021-02-18] MEDS: CLOPIDOGREL 75 MG TAB PO SCH (09:21)
[2021-02-18] MEDS: amLODIPine 10 MG TAB PO SCH (09:21)
[2021-02-18] MEDS: carvediloL 12.5 MG TAB PO SCH (09:22)
[2021-02-18] MEDS: MORPHINE 2 MG/1 ML INJ IV PRN (09:35)
[2021-02-18] MEDS: HEPARIN 5,000 UNIT/1 ML VIAL SUB-Q SCH (09:38)
--- NOTE | 2021-02-18 10:22 | Discharge Summary ---
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 sirs, GABRIEL, hyponatremia Condition: Good Hospital course: Assessment and Plan Assessment and plan: Type 2 diabetes mellitus ; uncontrolled Patient is not on any home diabetic medications Accu-Chek sliding scale coverage ADA diet Insulin as needed,A1c 3 months ago was 8.4 Diabetic education, diabetic diet education cellulitis of both lower extremities Elevate the limb , wound care, antibiotics. ID consult if needed Systemic inflammatory response syndrome due to cellulitis ,continue empiric antibiotics, supportive care GABRIEL (acute kidney injury) Vasomotor nephropathy present on admission IV fluid avoid nephrotoxin, follow renal function Significantly improved, closely monitor Hypernatremia Hyponatremic, sodium above 150 free water, Monitor electrolytes Obesity BMI 31.0 Diet modification exercise as tolerated and weight reduction When medically stable General debility Physical therapy occupational therapy Possible placement versus home with home health Type II diabetes Consistent carbohydrate diet, Accu-Chek sliding scale coverage insulin as needed, check A1c DVT prophylaxis SCD to bilateral lower extremities, Heparin subcu Advance care planning/full code Plan of care reviewed with the patient and her nurse DC planning per case management when medically stable We will closely monitor the patient and adjust the management as needed 02/14/2021; dehydration hyponatremia Free water, closely monitor electrolytes Supportive care 02/15/2021; patient feels slightly better Cellulitis minimal improvement, elevate the limb On IV antibiotics, follow cultures And control blood sugars, increase 70/30 insulin Disposition; closely monitor the patient, DC planning per case management, placement 02/16/21 Patient is doing better. Sodium is 156. We will recheck the BMP Cellulitis minimal improvement, elevate the limb on IV antibiotic. Follow culture Possible discharge plan Home with hospice tomorrow as per family wishes Case management working on discharge planning. 02/17/21 Patient is clinically same. No new problem. Patient is not talking. Communicate with nodding the head Sodium is improved 136, Cellulitis is slowly improvement. WBC 13.4. Continue IV antibiotic and elevate the limb. Follow culture Family wants to take the patient home with home hospice. Case discussed with case management for discharge planning. 02/18/21 Patient is doing good better. No new problem. Patient is talking. Denies any shortness of breath no chest pain Sodium is improved 136. Cellulitis is slowly improving. WBC is 13.4. Discharge the patient home with hospice with oral antibiotic. Continue home medication Family wants to take the patient home with home hospice. Condition at the time of discharge is stable. Follow-up with primary care in 1 week as outpatient History 55 YO Female with Obesity, Debililty, DM, HTN, CVA, Autism presents ED for evaluation. Patient is confused with diminished cognition and is unable to provide history detailed history and only provides limited history. Patient history taken from EMS staff, ED staff as well as patient family who are available via telephone. As per family the patient has experienced redness and swelling to bilateral lower extremities. EMS notified and upon arrival the patient was found to be in distress and subsequently transported to [facility] for further care and evaluation of the aforementioned symptoms. The patient was seen and evaluated in the emergency department. All lab and imaging studies reviewed. The patient was found to have bilateral lower extremity cellulitis, debility, hyponatremia, systemic inflammatory response syndrome, acute kidney injury. Patient initiated on IV antibiotic therapy and admitted to medical floor. No further history is obtainable. No reports of fever, chills, chest pain, palpitation, productive cough, skin rash, recent ill contacts, or known exposure to COVID-19. Advanced care planning conducted in ED. Disposition: DC-01 TO HOME OR SELFCARE Final Discharge Diagnosis (Prints w/discharge instructions): Cellulitis of the both lower extremities,sirs, GABRIEL, hyponatremia resolved General debility Core Measure Documentation - Palliative Care Palliative Care/ Comfort Measures: Hospice Care - Core Measures Any of the following diagnoses?: none Exam - Constitutional Vitals: Temp Pulse Resp BP Pulse Ox 97.8 F 69 24 129/50 90 02/18/21 04:27 02/18/21 04:27 02/18/21 04:27 02/18/21 04:27 02/18/21 04:27 General appearance: Present: no acute distress, well-nourished - EENT Eyes: Present: PERRL ENT: hearing intact, clear oral mucosa - Neck Neck: Present: supple, normal ROM - Respiratory Respiratory effort: normal Respiratory: bilateral: diminished - Cardiovascular Heart Sounds: Present: S1 & S2. Absent: rub, click - Extremities Extremities: pulses symmetrical, No edema Peripheral Pulses: within normal limits - Abdominal General gastrointestinal: Present: soft, non-tender, non-distended, normal bowel sounds Female genitourinary: Present: normal - Integumentary Integumentary: Present: clear, warm, dry - Musculoskeletal Musculoskeletal: gait normal, strength equal bilaterally - Psychiatric Psychiatric: appropriate mood/affect, intact judgment & insight - Neurologic Neurologic: CNII-XII intact, moves all extremities Plan Activity: advance as tolerated, fall precautions Diet: low fat, low cholesterol, low salt, diabetic Special Instructions: physical therapy, home hospice Follow up with: PRIMARY CARE,MD [Primary Care Provider] - 3-5 Days Prescriptions: Amoxicillin/Potassium Clav [Augmentin 875-125 Tablet] 1 each PO Q12H 7 Days #14 tablet
[2021-02-18 12:49] VITALS: BP 118/50
== END 2021-02-18 14:14 | disposition hospice, home (50) | DRG 602 ==
LOC: ED 09:46 → 3A 12:38
PROVIDERS: ADMIT Internal Medicine; ATTEND Hospitalist
DX: L03.115 Cellulitis of right lower limb (principal); N17.0 Acute kidney failure with tubular necrosis; R65.10 Systemic inflammatory response syndrome (SIRS) of non-infectious origin without acute organ dysfunction; E87.1 Hypo-osmolality and hyponatremia; L03.116 Cellulitis of left lower limb; I10 Essential (primary) hypertension; E66.9 Obesity, unspecified; Z20.822 Contact with and (suspected) exposure to COVID-19; R53.81 Other malaise; E11.9 Type 2 diabetes mellitus without complications; Z68.31 Body mass index [BMI] 31.0-31.9, adult; Z71.3 Dietary counseling and surveillance; Z86.73 Personal history of transient ischemic attack (TIA), and cerebral infarction without residual deficits; Z83.3 Family history of diabetes mellitus; Z82.49 Family history of ischemic heart disease and other diseases of the circulatory system
CPT/HCPCS: 36415; 80048; 80053; 80202; 82565; 82962; 85025; 87040; 96365; 96375; 96376; G0378; J0692; J1644; J1815; J2270; J3370; J7030; J7040; J7050; U0003

== ENCOUNTER 2021-10-19 17:08 | Emergency (ER) | payer MEDICAID ==
[2021-10-19 17:15] VITALS: BP 137/68
[2021-10-19] MEDS ORDERED: ACETAMINOPHEN 500 MG TAB PO ONE (17:47)
--- NOTE | 2021-10-19 18:24 | XRay Report ---
CHEST 1 VIEW 10/19/2021 6:03 PM INDICATION / CLINICAL INFORMATION: hypoxia. COMPARISON: 01/06/2021 FINDINGS: SUPPORT DEVICES: None. HEART / MEDIASTINUM: No significant abnormality. LUNGS / PLEURA: Moderate patchy bilateral opacities. No pneumothorax. ADDITIONAL FINDINGS: No significant additional findings. IMPRESSION: 1. Moderate patchy bilateral opacities likely indicating multifocal pneumonia. Signer Name: Jayro Kraus MD Signed: 10/19/2021 6:20 PM Workstation Name: [id number]
--- NOTE | 2021-10-19 18:48 | Emergency Department Report ---
ED Shortness of Breath HPI - General Chief Complaint: Dyspnea/Respdistress Stated Complaint: covid pos Time Seen by Provider: 10/19/21 17:14 Source: patient, EMS Mode of arrival: Ambulatory Limitations: No Limitations - History of Present Illness Initial Comments: Patient was brought in from hospice by EMS due to shortness of breath. She was recently diagnosed with COVID, within the last 2 days. She was short of breath and hypoxic. According to EMS, the hospice nurse wanted her transported and checked out. She is a DNR and DNI according to EMS. The patient states that she has had a cough. She has had some mild trouble breathing but states that she feels okay right now. She has no chest pain or vomiting. There is no diarrhea. She was unaware that she had coronavirus. She does not know where the exposure may have occurred. - Related Data Home Medications Medication Instructions Recorded Confirmed Last Taken AtorvaSTATin [Lipitor] 40 mg PO QHS 10/09/19 02/11/21 10/08/19 Clopidogrel [Plavix] 75 mg PO QDAY 10/09/19 02/11/21 10/08/19 Sertraline [Zoloft] 100 mg PO BID 10/09/19 02/11/21 10/08/19 Previous Rx's Medication Instructions Recorded Last Taken Type ALPRAZolam [Xanax TAB] 1 mg PO Q8H PRN #12 tablet 10/11/19 Unknown Rx amLODIPine 10 mg PO DAILY #30 10/11/19 Unknown Rx carvediloL [Coreg] 12.5 mg PO BID #60 tablet 10/11/19 Unknown Rx hydrALAZINE [Apresoline TAB] 25 mg PO Q8HR #90 tablet 10/11/19 Unknown Rx Itraconazole (Nf) [Sporanox (Nf)] 200 mg PO BID #28 capsule 01/08/21 Unknown Rx Acetaminophen [Acetaminophen TAB] 650 mg PO Q4H PRN tablet 02/18/21 Unknown Rx Amoxicillin/Potassium Clav 1 each PO Q12H 7 Days #14 tablet 02/18/21 Unknown Rx [Augmentin 875-125 Tablet] predniSONE [Deltasone] 50 mg PO QDAY #5 tab 10/19/21 Unknown Rx Allergies Allergy/AdvReac Type Severity Reaction Status Date / Time No Known Allergies Allergy Unverified 10/08/19 23:04 ED Review of Systems ROS: Stated complaint: covid pos Other details as noted in HPI Comment: All other systems reviewed and negative Constitutional: denies: fever Eyes: denies: eye pain ENT: denies: throat pain Respiratory: cough Cardiovascular: denies: chest pain Endocrine: denies: unexplained weight loss Gastrointestinal: denies: abdominal pain Genitourinary: denies: dysuria Musculoskeletal: denies: back pain Skin: denies: rash Neurological: denies: headache Hematological/Lymphatic: denies: easy bruising ED Past Medical Hx - Past Medical History Previous Medical History?: Yes Hx Hypertension: Yes Hx CVA: Yes Hx Diabetes: Yes Hx Asthma: No Hx COPD: No Hx HIV: No Additional medical history: Autism - Surgical History Past Surgical History?: No - Family History Family history: hypertension - Social History Smoking Status: Never Smoker - Medications Home Medications: Home Medications Medication Instructions Recorded Confirmed Last Taken Type AtorvaSTATin [Lipitor] 40 mg PO QHS 10/09/19 02/11/21 10/08/19 History Clopidogrel [Plavix] 75 mg PO QDAY 10/09/19 02/11/21 10/08/19 History Sertraline [Zoloft] 100 mg PO BID 10/09/19 02/11/21 10/08/19 History ALPRAZolam [Xanax TAB] 1 mg PO Q8H PRN #12 tablet 10/11/19 02/11/21 Unknown Rx amLODIPine 10 mg PO DAILY #30 10/11/19 02/11/21 Unknown Rx carvediloL [Coreg] 12.5 mg PO BID #60 tablet 10/11/19 02/11/21 Unknown Rx hydrALAZINE [Apresoline TAB] 25 mg PO Q8HR #90 tablet 10/11/19 02/11/21 Unknown Rx Itraconazole (Nf) [Sporanox (Nf)] 200 mg PO BID #28 capsule 01/08/21 02/11/21 Unknown Rx Acetaminophen [Acetaminophen TAB] 650 mg PO Q4H PRN tablet 02/18/21 Unknown Rx Amoxicillin/Potassium Clav 1 each PO Q12H 7 Days #14 tablet 02/18/21 Unknown Rx [Augmentin 875-125 Tablet] predniSONE [Deltasone] 50 mg PO QDAY #5 tab 10/19/21 Unknown Rx ED Physical Exam - General Limitations: No Limitations, Other (Pulse ox noted and hypoxic. This improves with oxygen) General appearance: alert, in no apparent distress - Head Head exam: Present: atraumatic, normocephalic - Eye Eye exam: Present: normal appearance, EOMI - ENT ENT exam: Present: mucous membranes dry, normal external ear exam - Neck Neck exam: Present: normal inspection. Absent: meningismus - Respiratory Respiratory exam: Present: normal lung sounds bilaterally. Absent: respiratory distress - Cardiovascular Cardiovascular Exam: Present: regular rate, normal rhythm - GI/Abdominal GI/Abdominal exam: Present: soft. Absent: tenderness - Extremities Exam Extremities exam: Present: normal capillary refill, other (Contractures in the right arm). Absent: calf tenderness - Back Exam Back exam: Absent: CVA tenderness (R), CVA tenderness (L) - Neurological Exam Neurological exam: Present: alert, oriented X3. Absent: motor sensory deficit - Psychiatric Psychiatric exam: Present: normal affect, normal mood - Skin Skin exam: Present: warm, dry ED Course Vital Signs 10/19/21 17:11 Temperature 100.4 F H Pulse Rate 92 H Respiratory 16 Rate Blood Pressure 137/68 [Left] O2 Sat by Pulse 92 Oximetry - Reevaluation(s) Reevaluation #1: 10/19/21 19:15 Chest x-ray was noted. EMS have been present upon arrival. I did meet them and get history from them. We attempted to contact the hospice staff and had no success. After x-ray was obtained, I did call the hospice staff back and got the on-call service. They are supposed to have the nurse call me back, but that is not transpired yet. At this time, patient has known coronavirus. She has hypoxia that has been successfully treated with oxygen. She is a DO NOT RESUSCITATE and DO NOT INTUBATE. As this is a viral infection, there is no indication for admission. Patient will be treated symptomatically. The hospice staff had sent her here on oxygen and they can use oxygen at the hospice home. ED Medical Decision Making - Medical Decision Making Patient was reportedly sent here by hospice because of COVID and hypoxia. Patient does not feel poorly. She is hypoxic. She has bilateral infiltrative processes on x-ray consistent with coronavirus. Patient was treated symptomatically. She can use Tylenol for fever. They can certainly follow-up with your regular physician given her coronavirus status. She should be i solating. Critical Care Time: No Critical care attestation.: If time is entered above; I have spent that time in minutes in the direct care of this critically ill patient, excluding procedure time. ED Disposition Clinical Impression: COVID-19 virus infection Disposition: HOME / SELF CARE / HOMELESS Is pt being admited?: No Condition: Stable Instructions: COVID-19 Frequently Asked Questions Additional Instructions: Continue to use oxygen at hospice. Push fluids. Return for problems. Follow- up with your regular doctor. Prescriptions: predniSONE [Deltasone] 50 mg PO QDAY #5 tab Referrals: PRIMARY CARE, [Primary Care Provider] - 3-5 Days
== END 2021-10-20 00:15 | disposition home or self-care (01) ==
LOC: ED 17:08
DX: U07.1 COVID-19 (principal)
CPT/HCPCS: 71045; 99283